=== PATIENT | female | born 1930 | race African-American/Black ===

== ENCOUNTER 2020-11-06 08:41 | Inpatient (IN) | payer MEDICARE, OTHER ==
[2020-11-06 08:51] LABS: Glucose,Whole Blood 347 mg/dL (75-99)
--- NOTE | 2020-11-06 08:52 | ED ---
General Adult HPI - General Stated complaint: unresponsive, hypothermia - History of Present Illness Initial comments: Dictation was produced using Coeur[employer] dictation software. please excuse any grammatical, word or spelling errors. This patient was cared for during a federal and state declared state of emergency secondary to Covid 19 Chief Complaint: 89-year-old female brought to the emergency department for altered mental status. History of Present Illness: 89-year-old female she was brought in by EMS. According to EMS she was last seen normal at 10 PM last night. She is found in the hallway where he was very cold. EMS tried to do point care blood glucose however was unable to. They made 2 attempts however was unsuccessful decided they should bring her to the emergency Department immediately. EMS measured her temperature is found to be low. EMS reports that they decided to obtain the patient leave the scene because patient's son was being belligerent. Patient is altered and unable to provide history of present illness. EMS measured her GCS at 9 Unable to obtain review of systems secondary to patient's mental status PHYSICAL EXAM: General Impression: Cold to the touch, localizes pain, HEENT: Normocephalic atraumatic, extra-ocular movements intact, pupils equal and reactive to light bilaterally, dry mucous membranes, pinpoint pupils Cardiovascular: Heart regular rate and rhythm Chest: no retractions, no tachypnea Abdomen: abdomen soft, non-tender, non-distended, no organomegaly Musculoskeletal: Pulses present and equal in all extremities, no peripheral edema Motor: no focal deficits noted Neurological: CN II-XII grossly intact, no focal motor or sensory deficits noted Skin: Intact with no visualized rashes ED course: 89-year-old male presents with hypothermia and altered mental status. Chart review does not show any previous history. Plan care blood glucose is in the 300s. Initial rectal temperature was 27.2C. Clinical presentation consistent with severe hypothermia. Patient with broad-spectrum antibiotics and 50 mg of IV hydrocortisone. Active external rewarming measures were performed. Patient is given warmed IV fluids, patient placed on vivian hugger. Case discussed with marine services technician and general surgeon. Dr. Ayala recommends transfer patient to facility that has cardiac bypass capabilities. Dental Appliance Mechanic not recommend thoracic lavage bilaterally. She does not recommend performing peritoneal lavage at patient's age. Case is discussed with Dr. Gutierrez at 10 AM who does not recommend performing cardiac bypass or mole in 89-year-old female with hypothermia. So for after discussion with marine services technician, general surgeon and cardiothoracic surgeon they do not recommend invasive, active internal warming measures given patient's age. The recommend that the risk outweigh the benefits. EKG interpretation: Ventricular rate 39, sinus bradycardia,. Interval 194, QRS 110, QTc 590. There are Moncada waves concerning for hypothermia.. QT is prolonged. No signs of high degree AV block. Son is at bedside reports that patient was trapped in the middle of 2 buildings. States that the hallway she was trapped in was very cold. Patient likely suffered environmental hypothermia. Son requests that patient be full code and all resuscitative measures be pursued. Patient reevaluated at bedside at 11:50 AM. Her temperature is improved at 90.6F. Patient be admitted to intensive care unit. Intravenous will be Dr. Rubin. Update was given to Dr. randall in the ICU. - Related Data Home Medications Medication Instructions Recorded Confirmed Aspirin [Children's Aspirin] 81 mg PO DAILY 11/06/20 11/06/20 DULoxetine HCL [Cymbalta] 30 mg PO DAILY 11/06/20 11/06/20 Donepezil [Aricept] 10 mg PO DAILY 11/06/20 11/06/20 Losartan Potassium [Cozaar] 100 mg PO DAILY 11/06/20 11/06/20 Memantine [Namenda] 10 mg PO BID 11/06/20 11/06/20 Simvastatin [Zocor] 40 mg PO HS 11/06/20 11/06/20 amLODIPine [Norvasc] 2.5 mg PO DAILY 11/06/20 11/06/20 busPIRone HCl [Buspar] 10 mg PO TID 11/06/20 11/06/20 Allergies Allergy/AdvReac Type Severity Reaction Status Date / Time No Allergy Information Allergy Vomiting Verified 11/06/20 10:07 Available Review of Systems ROS Statement: Those systems with pertinent positive or pertinent negative responses have been documented in the HPI. ROS Other: All systems not noted in ROS Statement are negative. Course Vital Signs 11/06/20 11/06/20 11/06/20 08:45 08:55 09:10 Temperature 83.8 F L 81.3 F L 81.7 F L Pulse Rate 62 37 L 35 L Respiratory 16 14 14 Rate Blood Pressure 157/101 164/78 168/83 O2 Sat by Pulse 99 100 100 Oximetry 11/06/20 11/06/20 11/06/20 09:25 09:30 09:40 Temperature 82.0 F L 80.8 F L Pulse Rate 37 L 39 L Respiratory 14 14 14 Rate Blood Pressure 188/82 172/82 O2 Sat by Pulse 100 100 Oximetry 11/06/20 11/06/20 11/06/20 09:52 09:55 10:00 Temperature 81.1 F L 81.3 F L Pulse Rate 32 L 36 L Respiratory 14 14 14 Rate Blood Pressure 164/77 187/86 O2 Sat by Pulse 100 100 Oximetry 11/06/20 11/06/20 11/06/20 10:10 10:25 10:40 Temperature 82.0 F L 82.4 F L 80.8 F L Pulse Rate 32 L 42 L 39 L Respiratory 14 14 14 Rate Blood Pressure 172/84 179/81 181/83 O2 Sat by Pulse 100 100 100 Oximetry 11/06/20 11/06/20 11/06/20 10:55 11:10 11:25 Temperature 82.6 F L 84.9 F L 86 F L Pulse Rate 42 L 51 L 51 L Respiratory 14 14 14 Rate Blood Pressure 183/86 180/86 O2 Sat by Pulse 100 100 100 Oximetry 11/06/20 11:42 Temperature 86.9 F L Pulse Rate 48 L Respiratory 14 Rate Blood Pressure 156/89 O2 Sat by Pulse 100 Oximetry Procedures - Intubation Sedative: Etomidate Mg Given: 20 Paralytic: Rocuronium Mg Given: 70 Laryngoscope: Arriola Size: 4 ET Tube Size: 7.5 ET Tube Uncuffed: No Tube Secured Depth (cm): 21 Tube Secured Location: lips Tube Placement Confirmation: visualized tube passing through cords, equal breath sounds bilaterally, no breath sounds over epigastrium, confirmation by capnometry Patient Tolerated Procedure: well Intubation Complications: none Medical Decision Making - Lab Data Result diagrams: 11/06/20 09:33 11/06/20 09:33 Lab Results 11/06/20 11/06/20 11/06/20 Range/Units 08:50 09:33 09:33 WBC 9.4 (3.8-10.6) k/uL RBC 3.24 L (3.80-5.40) m/uL Hgb 10.0 L (11.4-16.0) gm/dL Hct 30.5 L (34.0-46.0) % MCV 94.0 (80.0-100.0) fL MCH 30.9 (25.0-35.0) pg MCHC 32.9 (31.0-37.0) g/dL RDW 13.5 (11.5-15.5) % Plt Count 202 (150-450) k/uL MPV 8.5 Neutrophils % 43 % Lymphocytes % 53 % Monocytes % 2 % Eosinophils % 1 % Basophils % 0 % Neutrophils # 4.0 (1.3-7.7) k/uL Lymphocytes # 4.9 H (1.0-4.8) k/uL Monocytes # 0.1 (0-1.0) k/uL Eosinophils # 0.1 (0-0.7) k/uL Basophils # 0.0 (0-0.2) k/uL PT 12.4 H (9.0-12.0) sec INR 1.2 H (<1.2) APTT 22.3 (22.0-30.0) sec Sample Site ABG pH (7.35-7.45) ABG pCO2 (35-45) mmHg ABG pO2 (83-108) mmHg ABG HCO3 (21-25) mmol/L ABG Total CO2 (19-24) mmol/L ABG O2 Saturation (94-97) % ABG Base Excess mmol/L Jayro Test FiO2 % Sodium (137-145) mmol/L Potassium (3.5-5.1) mmol/L Chloride (98-107) mmol/L Carbon Dioxide (22-30) mmol/L Anion Gap mmol/L BUN (7-17) mg/dL Creatinine (0.52-1.04) mg/dL Est GFR (CKD-EPI)AfAm (>60 ml/min/1.73 sqM) Est GFR (CKD-EPI)NonAf (>60 ml/min/1.73 sqM) Glucose (74-99) mg/dL POC Glucose (mg/dL) 347 H (75-99) mg/dL POC Glu Associate Embalmer/Funeral Director ID Shirley Ayala Osmolality (280-301) mosm/kg Plasma Lactic Acid Uskhi (0.7-2.0) mmol/L Calcium (8.4-10.2) mg/dL Ionized Calcium Robert (4.5-5.3) mg/dL Magnesium (1.6-2.3) mg/dL Total Bilirubin (0.2-1.3) mg/dL AST (14-36) U/L ALT (4-34) U/L Alkaline Phosphatase (38-126) U/L Ammonia (<30) umol/L Creatine Kinase (30-135) U/L Troponin I (0.000-0.034) ng/mL C-Reactive Protein (<10.0) mg/L Total Protein (6.3-8.2) g/dL Albumin (3.5-5.0) g/dL Lipase (23-300) U/L TSH (0.465-4.680) mIU/L Urine Color Urine Appearance (Clear) Urine pH (5.0-8.0) Ur Specific [place] (1.001-1.035) Urine Protein (Negative) Urine Glucose (UA) (Negative) Urine Ketones (Negative) Urine Blood (Negative) Urine Nitrite (Negative) Urine Bilirubin (Negative) Urine Urobilinogen (<2.0) mg/dL Ur Leukocyte Esterase (Negative) Urine RBC (0-5) /hpf Urine WBC (0-5) /hpf Ur Squamous Epith Cells (0-4) /hpf Amorphous Sediment (None) /hpf Urine Bacteria (None) /hpf Hyaline Casts (0-2) /lpf Urine Mucus (None) /hpf Salicylates mg/dL Urine Opiates Screen (NotDetected) Ur Oxycodone Screen (NotDetected) Urine Methadone Screen (NotDetected) Ur Propoxyphene Screen (NotDetected) Acetaminophen ug/mL Ur Barbiturates Screen (NotDetected) U Tricyclic Antidepress (NotDetected) Ur Phencyclidine Scrn (NotDetected) Ur Amphetamines Screen (NotDetected) U Methamphetamines Scrn (NotDetected) U Benzodiazepines Scrn (NotDetected) Urine Cocaine Screen (NotDetected) U Marijuana (THC) Screen (NotDetected) Serum Alcohol mg/dL Coronavirus (PCR) (Not Detectd) Blood Type Blood Type Confirm Blood Type Recheck Bld Type Recheck Status Antibody Screen Spec Expiration Date 0111/06/20 11/06/20 Range/Units 09:33 09:33 09:33 WBC (3.8-10.6) k/uL RBC (3.80-5.40) m/uL Hgb (11.4-16.0) gm/dL Hct (34.0-46.0) % MCV (80.0-100.0) fL MCH (25.0-35.0) pg MCHC (31.0-37.0) g/dL RDW (11.5-15.5) % Plt Count (150-450) k/uL MPV Neutrophils % % Lymphocytes % % Monocytes % % Eosinophils % % Basophils % % Neutrophils # (1.3-7.7) k/uL Lymphocytes # (1.0-4.8) k/uL Monocytes # (0-1.0) k/uL Eosinophils # (0-0.7) k/uL Basophils # (0-0.2) k/uL PT (9.0-12.0) sec INR (<1.2) APTT (22.0-30.0) sec Sample Site ABG pH (7.35-7.45) ABG pCO2 (35-45) mmHg ABG pO2 (83-108) mmHg ABG HCO3 (21-25) mmol/L ABG Total CO2 (19-24) mmol/L ABG O2 Saturation (94-97) % ABG Base Excess mmol/L Jayro Test FiO2 % Sodium 145 (137-145) mmol/L Potassium 3.9 (3.5-5.1) mmol/L Chloride 111 H (98-107) mmol/L Carbon Dioxide 19 L (22-30) mmol/L Anion Gap 15 mmol/L BUN 35 H (7-17) mg/dL Creatinine 0.71 (0.52-1.04) mg/dL Est GFR (CKD-EPI)AfAm 88 (>60 ml/min/1.73 sqM) Est GFR (CKD-EPI)NonAf 76 (>60 ml/min/1.73 sqM) Glucose 297 H (74-99) mg/dL POC Glucose (mg/dL) (75-99) mg/dL POC Glu Associate Embalmer/Funeral Director ID Osmolality 316 H (280-301) mosm/kg Plasma Lactic Acid Sukhi 3.7 H* (0.7-2.0) mmol/L Calcium 9.3 (8.4-10.2) mg/dL Ionized Calcium Robert 6.1 H* (4.5-5.3) mg/dL Magnesium 1.9 (1.6-2.3) mg/dL Total Bilirubin 0.7 (0.2-1.3) mg/dL AST 26 (14-36) U/L ALT 18 (4-34) U/L Alkaline Phosphatase 84 (38-126) U/L Ammonia <9 (<30) umol/L Creatine Kinase 84 (30-135) U/L Troponin I (0.000-0.034) ng/mL C-Reactive Protein <5.0 (<10.0) mg/L Total Protein 6.0 L (6.3-8.2) g/dL Albumin 3.1 L (3.5-5.0) g/dL Lipase 174 (23-300) U/L TSH 2.030 (0.465-4.680) mIU/L Urine Color Urine Appearance (Clear) Urine pH (5.0-8.0) Ur Specific [place] (1.001-1.035) Urine Protein (Negative) Urine Glucose (UA) (Negative) Urine Ketones (Negative) Urine Blood (Negative) Urine Nitrite (Negative) Urine Bilirubin (Negative) Urine Urobilinogen (<2.0) mg/dL Ur Leukocyte Esterase (Negative) Urine RBC (0-5) /hpf Urine WBC (0-5) /hpf Ur Squamous Epith Cells (0-4) /hpf Amorphous Sediment (None) /hpf Urine Bacteria (None) /hpf Hyaline Casts (0-2) /lpf Urine Mucus (None) /hpf Salicylates <1.0 mg/dL Urine Opiates Screen Not Detected (NotDetected) Ur Oxycodone Screen Not Detected (NotDetected) Urine Methadone Screen Not Detected (NotDetected) Ur Propoxyphene Screen Not Detected (NotDetected) Acetaminophen <10.0 ug/mL Ur Barbiturates Screen Not Detected (NotDetected) U Tricyclic Antidepress Not Detected (NotDetected) Ur Phencyclidine Scrn Not Detected (NotDetected) Ur Amphetamines Screen Not Detected (NotDetected) U Methamphetamines Scrn Not Detected (NotDetected) U Benzodiazepines Scrn Not Detected (NotDetected) Urine Cocaine Screen Not Detected (NotDetected) U Marijuana (THC) Screen Not Detected (NotDetected) Serum Alcohol <10 mg/dL Coronavirus (PCR) (Not Detectd) Blood Type Blood Type Confirm Blood Type Recheck Bld Type Recheck Status Antibody Screen Spec Expiration Date 11/06/20 11/06/20 11/06/20 Range/Units 09:33 09:33 09:40 WBC (3.8-10.6) k/uL RBC (3.80-5.40) m/uL Hgb (11.4-16.0) gm/dL Hct (34.0-46.0) % MCV (80.0-100.0) fL MCH (25.0-35.0) pg MCHC (31.0-37.0) g/dL RDW (11.5-15.5) % Plt Count (150-450) k/uL MPV Neutrophils % % Lymphocytes % % Monocytes % % Eosinophils % % Basophils % % Neutrophils # (1.3-7.7) k/uL Lymphocytes # (1.0-4.8) k/uL Monocytes # (0-1.0) k/uL Eosinophils # (0-0.7) k/uL Basophils # (0-0.2) k/uL PT (9.0-12.0) sec INR (<1.2) APTT (22.0-30.0) sec Sample Site ABG pH (7.35-7.45) ABG pCO2 (35-45) mmHg ABG pO2 (83-108) mmHg ABG HCO3 (21-25) mmol/L ABG Total CO2 (19-24) mmol/L ABG O2 Saturation (94-97) % ABG Base Excess mmol/L Jayro Test FiO2 % Sodium (137-145) mmol/L Potassium (3.5-5.1) mmol/L Chloride (98-107) mmol/L Carbon Dioxide (22-30) mmol/L Anion Gap mmol/L BUN (7-17) mg/dL Creatinine (0.52-1.04) mg/dL Est GFR (CKD-EPI)AfAm (>60 ml/min/1.73 sqM) Est GFR (CKD-EPI)NonAf (>60 ml/min/1.73 sqM) Glucose (74-99) mg/dL POC Glucose (mg/dL) (75-99) mg/dL POC Glu Associate Embalmer/Funeral Director ID Osmolality (280-301) mosm/kg Plasma Lactic Acid Sukhi (0.7-2.0) mmol/L Calcium (8.4-10.2) mg/dL Ionized Calcium Robert (4.5-5.3) mg/dL Magnesium (1.6-2.3) mg/dL Total Bilirubin (0.2-1.3) mg/dL AST (14-36) U/L ALT (4-34) U/L Alkaline Phosphatase (38-126) U/L Ammonia (<30) umol/L Creatine Kinase (30-135) U/L Troponin I 0.018 (0.000-0.034) ng/mL C-Reactive Protein (<10.0) mg/L Total Protein (6.3-8.2) g/dL Albumin (3.5-5.0) g/dL Lipase (23-300) U/L TSH (0.465-4.680) mIU/L Urine Color Light Yellow Urine Appearance Clear (Clear) Urine pH 5.5 (5.0-8.0) Ur Specific [place] 1.021 (1.001-1.035) Urine Protein 2+ H (Negative) Urine Glucose (UA) 4+ H (Negative) Urine Ketones 1+ H (Negative) Urine Blood Negative (Negative) Urine Nitrite Negative (Negative) Urine Bilirubin Negative (Negative) Urine Urobilinogen <2.0 (<2.0) mg/dL Ur Leukocyte Esterase Negative (Negative) Urine RBC 2 (0-5) /hpf Urine WBC 3 (0-5) /hpf Ur Squamous Epith Cells <1 (0-4) /hpf Amorphous Sediment Occasional H (None) /hpf Urine Bacteria Occasional H (None) /hpf Hyaline Casts 3 H (0-2) /lpf Urine Mucus Rare H (None) /hpf Salicylates mg/dL Urine Opiates Screen (NotDetected) Ur Oxycodone Screen (NotDetected) Urine Methadone Screen (NotDetected) Ur Propoxyphene Screen (NotDetected) Acetaminophen ug/mL Ur Barbiturates Screen (NotDetected) U Tricyclic Antidepress (NotDetected) Ur Phencyclidine Scrn (NotDetected) Ur Amphetamines Screen (NotDetected) U Methamphetamines Scrn (NotDetected) U Benzodiazepines Scrn (NotDetected) Urine Cocaine Screen (NotDetected) U Marijuana (THC) Screen (NotDetected) Serum Alcohol mg/dL Coronavirus (PCR) (Not Detectd) Blood Type O Positive Blood Type Confirm Blood Type Recheck Bld Type Recheck Status Antibody Screen NEGATIVE Spec Expiration Date 11/06/20 11/06/20 11/06/20 Range/Units 09:42 09:55 09:59 WBC (3.8-10.6) k/uL RBC (3.80-5.40) m/uL Hgb (11.4-16.0) gm/dL Hct (34.0-46.0) % MCV (80.0-100.0) fL MCH (25.0-35.0) pg MCHC (31.0-37.0) g/dL RDW (11.5-15.5) % Plt Count (150-450) k/uL MPV Neutrophils % % Lymphocytes % % Monocytes % % Eosinophils % % Basophils % % Neutrophils # (1.3-7.7) k/uL Lymphocytes # (1.0-4.8) k/uL Monocytes # (0-1.0) k/uL Eosinophils # (0-0.7) k/uL Basophils # (0-0.2) k/uL PT (9.0-12.0) sec INR (<1.2) APTT (22.0-30.0) sec Sample Site LRAD ABG pH 7.30 L (7.35-7.45) ABG pCO2 36 (35-45) mmHg ABG pO2 >400 H (83-108) mmHg ABG HCO3 18 L (21-25) mmol/L ABG Total CO2 19 (19-24) mmol/L ABG O2 Saturation 100.0 H (94-97) % ABG Base Excess -8.3 mmol/L Jayro Test Yes FiO2 100 % Sodium (137-145) mmol/L Potassium (3.5-5.1) mmol/L Chloride (98-107) mmol/L Carbon Dioxide (22-30) mmol/L Anion Gap mmol/L BUN (7-17) mg/dL Creatinine (0.52-1.04) mg/dL Est GFR (CKD-EPI)AfAm (>60 ml/min/1.73 sqM) Est GFR (CKD-EPI)NonAf (>60 ml/min/1.73 sqM) Glucose (74-99) mg/dL POC Glucose (mg/dL) (75-99) mg/dL POC Glu Associate Embalmer/Funeral Director ID Osmolality (280-301) mosm/kg Plasma Lactic Acid Sukhi (0.7-2.0) mmol/L Calcium (8.4-10.2) mg/dL Ionized Calcium Robert (4.5-5.3) mg/dL Magnesium (1.6-2.3) mg/dL Total Bilirubin (0.2-1.3) mg/dL AST (14-36) U/L ALT (4-34) U/L Alkaline Phosphatase (38-126) U/L Ammonia (<30) umol/L Creatine Kinase (30-135) U/L Troponin I (0.000-0.034) ng/mL C-Reactive Protein (<10.0) mg/L Total Protein (6.3-8.2) g/dL Albumin (3.5-5.0) g/dL Lipase (23-300) U/L TSH (0.465-4.680) mIU/L Urine Color Urine Appearance (Clear) Urine pH (5.0-8.0) Ur Specific [place] (1.001-1.035) Urine Protein (Negative) Urine Glucose (UA) (Negative) Urine Ketones (Negative) Urine Blood (Negative) Urine Nitrite (Negative) Urine Bilirubin (Negative) Urine Urobilinogen (<2.0) mg/dL Ur Leukocyte Esterase (Negative) Urine RBC (0-5) /hpf Urine WBC (0-5) /hpf Ur Squamous Epith Cells (0-4) /hpf Amorphous Sediment (None) /hpf Urine Bacteria (None) /hpf Hyaline Casts (0-2) /lpf Urine Mucus (None) /hpf Salicylates mg/dL Urine Opiates Screen (NotDetected) Ur Oxycodone Screen (NotDetected) Urine Methadone Screen (NotDetected) Ur Propoxyphene Screen (NotDetected) Acetaminophen ug/mL Ur Barbiturates Screen (NotDetected) U Tricyclic Antidepress (NotDetected) Ur Phencyclidine Scrn (NotDetected) Ur Amphetamines Screen (NotDetected) U Methamphetamines Scrn (NotDetected) U Benzodiazepines Scrn (NotDetected) Urine Cocaine Screen (NotDetected) U Marijuana (THC) Screen (NotDetected) Serum Alcohol mg/dL Coronavirus (PCR) (Not Detectd) Blood Type Blood Type Confirm O Positive Blood Type Recheck No Previous Record Bld Type Recheck Status CABO Indicated Antibody Screen Spec Expiration Date 11/09/2020 - 235811/06/20 Range/Units 09:59 WBC (3.8-10.6) k/uL RBC (3.80-5.40) m/uL Hgb (11.4-16.0) gm/dL Hct (34.0-46.0) % MCV (80.0-100.0) fL MCH (25.0-35.0) pg MCHC (31.0-37.0) g/dL RDW (11.5-15.5) % Plt Count (150-450) k/uL MPV Neutrophils % % Lymphocytes % % Monocytes % % Eosinophils % % Basophils % % Neutrophils # (1.3-7.7) k/uL Lymphocytes # (1.0-4.8) k/uL Monocytes # (0-1.0) k/uL Eosinophils # (0-0.7) k/uL Basophils # (0-0.2) k/uL PT (9.0-12.0) sec INR (<1.2) APTT (22.0-30.0) sec Sample Site ABG pH (7.35-7.45) ABG pCO2 (35-45) mmHg ABG pO2 (83-108) mmHg ABG HCO3 (21-25) mmol/L ABG Total CO2 (19-24) mmol/L ABG O2 Saturation (94-97) % ABG Base Excess mmol/L Jayro Test FiO2 % Sodium (137-145) mmol/L Potassium (3.5-5.1) mmol/L Chloride (98-107) mmol/L Carbon Dioxide (22-30) mmol/L Anion Gap mmol/L BUN (7-17) mg/dL Creatinine (0.52-1.04) mg/dL Est GFR (CKD-EPI)AfAm (>60 ml/min/1.73 sqM) Est GFR (CKD-EPI)NonAf (>60 ml/min/1.73 sqM) Glucose (74-99) mg/dL POC Glucose (mg/dL) (75-99) mg/dL POC Glu Associate Embalmer/Funeral Director ID Osmolality (280-301) mosm/kg Plasma Lactic Acid Sukhi (0.7-2.0) mmol/L Calcium (8.4-10.2) mg/dL Ionized Calcium Robert (4.5-5.3) mg/dL Magnesium (1.6-2.3) mg/dL Total Bilirubin (0.2-1.3) mg/dL AST (14-36) U/L ALT (4-34) U/L Alkaline Phosphatase (38-126) U/L Ammonia (<30) umol/L Creatine Kinase (30-135) U/L Troponin I (0.000-0.034) ng/mL C-Reactive Protein (<10.0) mg/L Total Protein (6.3-8.2) g/dL Albumin (3.5-5.0) g/dL Lipase (23-300) U/L TSH (0.465-4.680) mIU/L Urine Color Urine Appearance (Clear) Urine pH (5.0-8.0) Ur Specific [place] (1.001-1.035) Urine Protein (Negative) Urine Glucose (UA) (Negative) Urine Ketones (Negative) Urine Blood (Negative) Urine Nitrite (Negative) Urine Bilirubin (Negative) Urine Urobilinogen (<2.0) mg/dL Ur Leukocyte Esterase (Negative) Urine RBC (0-5) /hpf Urine WBC (0-5) /hpf Ur Squamous Epith Cells (0-4) /hpf Amorphous Sediment (None) /hpf Urine Bacteria (None) /hpf Hyaline Casts (0-2) /lpf Urine Mucus (None) /hpf Salicylates mg/dL Urine Opiates Screen (NotDetected) Ur Oxycodone Screen (NotDetected) Urine Methadone Screen (NotDetected) Ur Propoxyphene Screen (NotDetected) Acetaminophen ug/mL Ur Barbiturates Screen (NotDetected) U Tricyclic Antidepress (NotDetected) Ur Phencyclidine Scrn (NotDetected) Ur Amphetamines Screen (NotDetected) U Methamphetamines Scrn (NotDetected) U Benzodiazepines Scrn (NotDetected) Urine Cocaine Screen (NotDetected) U Marijuana (THC) Screen (NotDetected) Serum Alcohol mg/dL Coronavirus (PCR) Not Detected (Not Detectd) Blood Type Blood Type Confirm Blood Type Recheck Bld Type Recheck Status Antibody Screen Spec Expiration Date Disposition Clinical Impression: Hypothermia Disposition: ADMITTED IP TO THIS [facility] Condition: Critical Referrals: Дмитрий Rubin MD [Primary Care Provider] - 1-2 days Decision Time: 11:56
[2020-11-06] MEDS ORDERED: SODIUM CHLORIDE 0.9% 2,000 ML IV ONE (09:30)
[2020-11-06] MEDS ORDERED: VANCOMYCIN IV PER PHARMACY 1 EACH MISC MISCELLANE PRN (09:32)
[2020-11-06] MEDS ORDERED: HYDROCORTISONE SUCCINATE 100 MG/2 ML VIAL IV STA (09:33)
[2020-11-06] MEDS ORDERED: PIPERACILLIN-TAZOBACTAM 3.375 GM in SODIUM CHLORIDE 0.9% 100 ML IVPB STA (09:33)
[2020-11-06 09:40] LABS: Basophils % (A) 0 %; Eosinophils # (A) 0.1 k/uL (0-0.7); Eosinophils % (A) 1 %; HCT 30.5 % (34.0-46.0); Lymphocytes # (A) 4.9 k/uL (1.0-4.8); Lymphocytes % (A) 53 %; MCH 30.9 pg (25.0-35.0); MCHC 32.9 g/dL (31.0-37.0); Mean Platelet Volume 8.5; Monocytes # (A) 0.1 k/uL (0-1.0); Monocytes % (A) 2 %; Neutrophils % (A) 43 %; Platelet Count 202 k/uL (150-450); RBC 3.24 m/uL (3.80-5.40); RDW 13.5 % (11.5-15.5); WBC 9.4 k/uL (3.8-10.6)
[2020-11-06] MEDS ORDERED: VANCOMYCIN 750 MG in SODIUM CHLORIDE 0.9% 250 ML IVPB ONE (09:45)
[2020-11-06 09:49] LABS: Amorphous Sediment,Urine Occasional /hpf; Appearance,Urine Clear (Clear); Bacteria,Urine Occasional /hpf; Bilirubin,Urine Negative (Negative); Blood,Urine Negative (Negative); Color,Urine Light Yellow; Glucose,Urine (UA) 4+ (Negative); Hyaline Casts,Urine 3 /lpf (0-2); INR 1.2 (<1.2); Ketones,Urine 1+ (Negative); Leukocyte Esterase,Urine Negative (Negative); Mucus,Urine Rare /hpf; Nitrite,Urine Negative (Negative); PH, Urine 5.5 (5.0-8.0); Partial Thromboplastin Time 22.3 sec (22.0-30.0); Protein,Urine 2+ (Negative); Prothrombin Time 12.4 sec (9.0-12.0); RBC,Urine 2 /hpf (0-5); Specific Gravity,Urine 1.021 (1.001-1.035); Squamous Epithelial Cell,Urine <1 /hpf (0-4); Urobilinogen,Urine <2.0 mg/dL (<2.0); WBC,Urine 3 /hpf (0-5)
[2020-11-06] MEDS ORDERED: ETOMIDATE 2 MG/ML 10 ML VIAL IVP STA (09:49)
[2020-11-06 09:50] LABS: ABG Base Excess -8.3 mmol/L; ABG HCO3 18 mmol/L (21-25); ABG PCO2 36 mmHg (35-45); ABG PO2 >400 mmHg (83-108); ABG TCO2 19 mmol/L (19-24); Allen Test Performed? Yes
[2020-11-06] MEDS ORDERED: ROCURONIUM 10 MG/ML (10 ML VIAL) IV STA (09:50)
[2020-11-06] MEDS ORDERED: NALOXONE 0.4 MG/ML 10 ML VIAL IVP STA (09:51)
[2020-11-06] MEDS ORDERED: NALOXONE 0.4 MG/ML 1 ML VIAL IVP STA (09:51)
[2020-11-06 09:54] LABS: Ionized Calcium 6.1 mg/dL (4.5-5.3)
--- NOTE | 2020-11-06 09:57 | XR ---
EXAMINATION TYPE: XR chest 1V portable DATE OF EXAM: 11/06/2020 COMPARISON: NONE HISTORY: Altered mental status and weakness. At the beginning to invade it. TECHNIQUE: 2 AP portable frontal supine views of the chest are obtained. FINDINGS: There is endotracheal tuber at level of babar, advise pulling back 4 to 5 cm to be in more ideal position. There is orogastric tube coiled within the stomach. Overlying EKG leads. Heart size upper limits of normal with atherosclerotic and ectatic thoracic aorta. Chronic parenchyma l changes suspected and low lung volumes bilaterally without suspicious focal airspace opacity, pleur al effusion, or pneumothorax seen. Osseous structures intact. Artifact from overlying clothing or lc nket material is present. IMPRESSION: 1. Satisfactory positioning of orogastric tube. Low lying endotracheal tube, advise pulling back 4 to 5 cm. 2. Low lung volumes and chronic parenchymal changes without suspicious acute pulmonary process.
[2020-11-06 09:58] LABS: ALT 18 U/L (4-34); AST 26 U/L (14-36); Acetaminophen <10.0 ug/mL; African American GFR (CKD) 88 (>60 ml/min/1.73 sqM); Albumin 3.1 g/dL (3.5-5.0); Alcohol <10 mg/dL; Alkaline Phosphatase 84 U/L (38-126); Anion Gap 15 mmol/L; Blood Urea Nitrogen 35 mg/dL (7-17); Calcium 9.3 mg/dL (8.4-10.2); Carbon Dioxide 19 mmol/L (22-30); Chloride 111 mmol/L (98-107); Creatine Kinase 84 U/L (30-135); Glucose 297 mg/dL (74-99); Lipase 174 U/L (23-300); Magnesium 1.9 mg/dL (1.6-2.3); Non-African American GFR(CKD) 76 (>60 ml/min/1.73 sqM); Salicylate <1.0 mg/dL; Sodium 145 mmol/L (137-145); Total Bilirubin 0.7 mg/dL (0.2-1.3)
[2020-11-06 10:01] LABS: Amphetamine Screen,Urine Not Detected (NotDetected); Barbiturate Screen,Urine Not Detected (NotDetected); Benzodiazepines Screen,Urine Not Detected (NotDetected); Cocaine Screen,Urine Not Detected (NotDetected); Methadone Screen, Urine Not Detected (NotDetected); Opiate Screen,Urine Not Detected (NotDetected); Oxycodone Screen, Urine Not Detected (NotDetected); Phencyclidine Screen,Urine Not Detected (NotDetected); Tricyclic Antidepressant,Urine Not Detected (NotDetected); Urn Cannabinoid Scrn Not Detected (NotDetected)
[2020-11-06] MEDS ORDERED: CALCIUM CHLORIDE 100 MG/ML 10 ML SYRINGE IVP STA (10:04)
[2020-11-06 10:08] LABS: Potassium 3.9 mmol/L (3.5-5.1)
[2020-11-06 10:16] LABS: Lactic Acid, Venous 3.7 mmol/L (0.7-2.0)
[2020-11-06] MEDS ORDERED: CALCIUM GLUCONATE 1 GM in SODIUM CHLORIDE 0.9% 100 ML IVPB ONE (10:30)
[2020-11-06 10:39] LABS: C Reactive Protein <5.0 mg/L (<10.0)
--- NOTE | 2020-11-06 11:35 | CT ---
EXAMINATION TYPE: CT brain latonya gore DATE OF EXAM: 11/06/2020 COMPARISON: None HISTORY: Altered mental status, hypothermia, found unresponsive CT DLP: 1264 mGycm Automated exposure control for dose reduction was used. TECHNIQUE: CT scan of the head and cervical spine are performed without contrast. FINDINGS: There is no acute intracranial hemorrhage, mass effect, or midline shift identified. The ventricles and sulci are within normal limits in size. There is cortical atrophy. Periventricular wh ite matter shows patchy low attenuation. Focal low attenuation is present within the thalamus on the left which is asymmetric. There are cerebral vascular calcifications. The globes are intact and the v isualized sinuses are clear. Endotracheal tube is noted incidentally. Basilar tip appears somewhat de nse. There may be some slight enlargement. There is an NG tube present. Cervical spine is visualized in its entirety from C1 through upper thoracic levels and demonstrates s atisfactory alignment without evidence of acute fracture or dislocation. Prevertebral soft tissue ap pears within normal limits. The C1-C2 articulation is unremarkable. There is multilevel facet arthro michael. Multilevel spondylosis with loss of disc height is present consistent with degenerative disc d isease, there is multilevel foraminal encroachment. IMPRESSION: 1. There is no acute fracture or dislocation evident in the cervical spine. 2. Findings may represent subacute thalamic infarct, correlate. No acute intracranial hemorrhage, mas s effect, or midline shift is seen. 3. Dense basilar artery is indeterminate, brain MR, [place] of [place] MRA may be of benefit
[2020-11-06] MEDS ORDERED: NALOXONE 0.4 MG/ML 1 ML VIAL IV PRN (11:49)
[2020-11-06] MEDS ORDERED: ASPIRIN 600 MG SUPP RECTAL STA (11:58)
[2020-11-06 12:57] LABS: Glucose,Whole Blood 209 mg/dL (75-99)
--- NOTE | 2020-11-06 13:22 | P.CNPUL ---
History of Present Illness Consult date: 11/06/20 Requesting physician: Дмитрий Rubin Reason for consult: other (Mechanical ventilator/critical care management) History of present illness: This is a 89-year-old frail, cachectic, 38 kg female patient with a history of mention, hypertension, hyperlipidemia. She was brought in earlier this morning via EMS after she was being had been found in the hallway of her apartment building. The hallway was somewhat exposed to the outside temperature. They were unable to obtain point of care glucose testing. They found her temperature to be quite low as well. She was quite unresponsive they decided to bring her right to the emergency room. They left the scene urgently as the son was being belligerent. No further information was able to be obtained. Upon arrival they found her blood glucose to be in the 300s. Her initial rectal temperature was 27.2C. Consistent with severe hypothermia. Active external rewarming measures were performed. She received 2 L of warm saline IV. Fabian hugger was placed. CT services were contacted and did not recommend performing any invasive warming procedures at this time. Due to the patient's obtundation she was intubated and placed on a mechanical ventilator. Computed tomography scan of the brain revealed no acute fracture or dislocation evident in the cervical spine. There may be a subacute thalamic infarct. No acute intracranial hemorrhage, mass effect or midline shift. Chest x-ray revealed low lung volumes and chronic parenchymal changes but no acute suspicious pulmonary process. Satisfactory position of the OG tube. Endotracheal tube repositioned. EKG revealed significant bradycardia and prolonged QT with corrected measuring 590 ms. White count 9.4. Hemoglobin 10.0. INR 1.2. Sodium 145. Potassium 2.9. Creatinine 0.71. Glucose 297. Lactic acid 3.7. Ionized calcium measured 6.1. TSH 2.03. Albumin 3.1. Troponin 0.018. C-reactive protein less than 5. CK level 84. Urinalysis 1+ ketones. Urine drug screen negative. Alcohol level less than 10. Coronavirus not detected. Current ventilator settings are assist control at a rate of 16, tidal volume 400, FiO2 100% and a PEEP of 5. Gases revealed a pH is 7.30, pCO2 36, pO2 greater than 400. FiO2 has been titrated down to 50%. She has received Zosyn, vancomycin. Her current core temperature is 89.6. Review of Systems ROS unobtainable: due to endotracheal tube Past Medical History Past Medical History: No Reported History, Dementia, Hyperlipidemia, Hypertension History of Any Multi-Drug Resistant Organisms: None Reported Past Surgical History: No Surgical Hx Reported Past Psychological History: No Psychological Hx Reported Smoking Status: Unknown if ever smoked Past Alcohol Use History: None Reported Past Drug Use History: None Reported Medications and Allergies Home Medications Medication Instructions Recorded Confirmed Type Aspirin [Children's Aspirin] 81 mg PO DAILY 11/06/20 11/06/20 History DULoxetine HCL [Cymbalta] 30 mg PO DAILY 11/06/20 11/06/20 History Donepezil [Aricept] 10 mg PO DAILY 11/06/20 11/06/20 History Losartan Potassium [Cozaar] 100 mg PO DAILY 11/06/20 11/06/20 History Memantine [Namenda] 10 mg PO BID 11/06/20 11/06/20 History Simvastatin [Zocor] 40 mg PO HS 11/06/20 11/06/20 History amLODIPine [Norvasc] 2.5 mg PO DAILY 11/06/20 11/06/20 History busPIRone HCl [Buspar] 10 mg PO TID 11/06/20 11/06/20 History Allergies Allergy/AdvReac Type Severity Reaction Status Date / Time No Allergy Information Allergy Vomiting Verified 11/06/20 10:07 Available Physical Exam Vitals: Vital Signs Temp Pulse Resp BP Pulse Ox 11/06/20 12:00 89.6 F L 42 L 14 170/75 100 11/06/20 11:55 88.5 F L 42 L 14 166/81 11/06/20 11:42 86.9 F L 48 L 14 156/89 100 11/06/20 11:40 88.2 F L 48 L 14 166/81 100 11/06/20 11:25 86 F L 51 L 14 180/86 100 11/06/20 11:10 84.9 F L 51 L 14 100 11/06/20 10:55 82.6 F L 42 L 14 183/86 100 11/06/20 10:40 80.8 F L 39 L 14 181/83 100 11/06/20 10:25 82.4 F L 42 L 14 179/81 100 11/06/20 10:10 82.0 F L 32 L 14 172/84 100 11/06/20 10:00 81.3 F L 36 L 14 187/86 100 11/06/20 09:55 81.1 F L 32 L 14 164/77 100 11/06/20 09:52 14 11/06/20 09:40 80.8 F L 39 L 14 172/82 100 11/06/20 09:30 14 11/06/20 09:25 82.0 F L 37 L 14 188/82 100 11/06/20 09:10 81.7 F L 35 L 14 168/83 100 11/06/20 08:55 81.3 F L 37 L 14 164/78 100 11/06/20 08:45 83.8 F L 62 16 157/101 99 Intake and Output 11/05/20 11/06/20 11/06/20 22:59 06:59 14:59 Intake Total 6.246 Output Total 800 Balance -793.754 Intake: Intake, IV Titration 6.246 Amount propofoL 1,000 mg In 6.246 Empty Bag 1 bag @ Titrate IV .Q0M ONE Rx#: [id number] Output: Urine 800 Uretheral (Bae) 800 Other: Weight 38.555 kg GENERAL EXAM: Intubated, sedated, frail 89-year-old female patient, comfortable in no apparent distress. HEAD: Normocephalic. EYES: Sluggish reaction of pupils, equal size. NOSE: Clear with pink turbinates. THROAT: Oral endotracheal and gastric tube secured in place. No erythema or exudates. NECK: No masses, no JVD. CHEST: No chest wall deformity. LUNGS: Equal air entry with no crackles, wheeze, rhonchi or dullness. CVS: S1 and S2 normal with no audible murmur, regular rhythm. ABDOMEN: No hepatosplenomegaly, normal bowel sounds, no guarding or rigidity. SPINE: No scoliosis or deformity SKIN: No rashes CENTRAL NERVOUS SYSTEM: Sedated, tone is normal in all 4 extremities. EXTREMITIES: There is no peripheral edema. No clubbing, no cyanosis. Peripheral pulses are intact. Results - Laboratory Findings CBC and BMP: 11/06/20 09:33 11/06/20 09:33 ABG ABG pH 7.30 (7.35-7.45) L 11/06/20 09:42 ABG pCO2 36 mmHg (35-45) 11/06/20 09:42 ABG pO2 >400 mmHg (83-108) H 11/06/20 09:42 ABG O2 Saturation 100.0 % (94-97) H 11/06/20 09:42 PT/INR, D-dimer PT 12.4 sec (9.0-12.0) H 11/06/20 09:33 INR 1.2 (<1.2) H 11/06/20 09:33 Abnormal lab findings: Abnormal Labs 11/06/20 11/06/20 11/06/20 08:50 09:33 09:33 RBC 3.24 L Hgb 10.0 L Hct 30.5 L Lymphocytes # 4.9 H PT 12.4 H INR 1.2 H ABG pH ABG pO2 ABG HCO3 ABG O2 Saturation Chloride Carbon Dioxide BUN Glucose POC Glucose (mg/dL) 347 H Osmolality Plasma Lactic Acid Sukhi Ionized Calcium Robert Total Protein Albumin Urine Protein Urine Glucose (UA) Urine Ketones Amorphous Sediment Urine Bacteria Hyaline Casts Urine Mucus 11/06/20 11/06/20 11/06/20 09:33 09:33 09:33 RBC Hgb Hct Lymphocytes # PT INR ABG pH ABG pO2 ABG HCO3 ABG O2 Saturation Chloride 111 H Carbon Dioxide 19 L BUN 35 H Glucose 297 H POC Glucose (mg/dL) Osmolality 316 H Plasma Lactic Acid Sukhi 3.7 H* Ionized Calcium Robert 6.1 H* Total Protein 6.0 L Albumin 3.1 L Urine Protein 2+ H Urine Glucose (UA) 4+ H Urine Ketones 1+ H Amorphous Sediment Occasional H Urine Bacteria Occasional H Hyaline Casts 3 H Urine Mucus Rare H 11/06/20 09:42 RBC Hgb Hct Lymphocytes # PT INR ABG pH 7.30 L ABG pO2 >400 H ABG HCO3 18 L ABG O2 Saturation 100.0 H Chloride Carbon Dioxide BUN Glucose POC Glucose (mg/dL) Osmolality Plasma Lactic Acid Sukhi Ionized Calcium Robert Total Protein Albumin Urine Protein Urine Glucose (UA) Urine Ketones Amorphous Sediment Urine Bacteria Hyaline Casts Urine Mucus - Diagnostic Findings Chest x-ray: image reviewed Assessment and Plan Assessment: 1 Altered mental status of unclear etiology in a patient found on the ground in the hallway exposed to outdoor temperature 2 Acute hypothermia with initial core temperature 81.3. Currently 89.6. Received 2 L of warm saline. Fabian hugger in place 3 Acute hypoxic respiratory failure secondary to above requiring intubation mechanical ventilatory support 4 Focal low attenuation present within the thalamus on the left which is asymmetric possible thalamus infarct 5 History of dementia 6 Hyperlipidemia 7 Hypertension 8 Lactic acidosis 9 Hyperglycemia Plan: The patient was seen and evaluated by Dr. Villalobos Chest x-ray, ABGs and labs reviewed Continue with external warming therapy Gradually increase her temperature Titrate down the FiO2 as tolerated Propofol for sedation, ABGs pending We will continue to follow and make further recommendations based on her clinical status I, the cosigning physician, performed a history & physical examination of the patient. Lungs sounds are clear. Maintaining good O2 saturations in the 90s on 50% FiO2 via the mechanical ventilator. I discussed the assessment and plan of care with my nurse practitioner, Adina Sinclair. I attest to the above consultation as dictated by her. Time with Patient: Greater than 30
[2020-11-06] MEDS: SODIUM CHLORIDE 0.9% 1,000 ML IV SCH (13:37)
[2020-11-06] MEDS: INSULIN ASPART (NovoLOG) 100 UNIT/ML VIAL SQ SCH ×2 (13:41→18:13)
[2020-11-06] MEDS: PANTOPRAZOLE 40 MG/10 ML VIAL IV SCH (13:44)
[2020-11-06] MEDS ORDERED: VANCOMYCIN 750 MG in SODIUM CHLORIDE 0.9% 250 ML IVPB SCH (14:15)
[2020-11-06] MEDS ORDERED: SODIUM CHLORIDE 0.9% 1,000 ML IV ONE (15:13)
--- NOTE | 2020-11-06 15:20 | P.CNNES ---
History of Present Illness Consult date: 11/06/20 Requesting physician: Alex Joiner Reason for Consult: suspect stroke per CT head finding (subacute thalamic infarct) History of Present Illness: 6 is an 89-year-old woman medical history of hypertension, hyperlipidemia presented to the emergency department on the 11/06/2020 via EMS because of altered mental status and hypothermia. History is obtained from medical records since unable to obtain from the patient. She was brought in the morning via EMS since she was found in the hallway of her apartment building. It seems that the hallway was somewhat exposed to the outside temperature. Last normal was last n ight at 10pm. EMS attempted to get the glucose checked on her about the unsuccessful after 2 attempts. Per EMS her GCS was 9. In our facility her POC glucose was in the 300s was hypothermic. The patient was intubated in the ED and was started on IV propofol drip. Per the patient ICU nurse she stated that the patient the on 920 mics per Per minute drip she was moving all extremities but was restless so he had to go up on the propofol drip but her blood pressure systolic was in the 90s so she went back down at on the propofol to 20 mcg/kg/min. According to the nurse she nodded that she was in pain when she had the patient initially. Upon seeing the patient she was opening. Of note there is seems to be some family dynamics where i is noted in the ED note that EMS found the patient to be belligerent. Initial vital signs on presentation is blood pressure 157/101, heart rate of 62, respiratory of 16, temperature of 83.8 Fahrenheit rectal and the pulse ox of 99% room air. After that the patient was mechanically ventilated and the patient is saturating at 100% Since the patient has been in the hospital her temperature has been in the range of 81.[address] of the of the head in the ED and it's reported as findings may represent subacute Aaron infarct, correlate. No acute intracranial hemorrhage, mass effect or midline shift is seen. Dense basilar artery is ind eterminant, brain MRI, belkofski of Vann MRA may be of benefit. I personally reviewed the CT of the head and I felt there was some subacute hypointensity over the left thalamus which was small in size. Also also possibly the tip of the basilar artery was hyperintense. CT of the cervical spine is reported as there is no acute fracture or dislocation evident in the cervical spine at. In the bodies mentioned there is multilevel facet arthropathy. There is multilevel spondylosis with loss of disc height is present consistent with degenerative disc disease, there is multilevel foraminal encroachment. EKG is reported as marked sinus bradycardia with marked sinus arrhythmia. Prolonged QT. Abnormal EKG. Initial POC glucose is 347. The Plasma-Lyte vein is 3.7 The ionized calcium is 6.1 while the serum glucose is 9.3. TSH is 2.03. Urine drug screen the routine urine drugs and is negative. Salicylate level is less than 1, acetaminophen is less than 10 and the serum alcohol was less than 1 0. The ABG showed a pH was 7.3, pO2 is more than 400 bicarb is 18 the CO2 is 19 Review of Systems Review of system is limited as the patient condition but the prone positive and negative as per HPI. Past Medical History Past Medical History: No Reported History, Dementia, Hyperlipidemia, Hypertension History of Any Multi-Drug Resistant Organisms: None Reported Past Surgical History: No Surgical Hx Reported Past Psychological History: No Psychological Hx Reported Smoking Status: Unknown if ever smoked Past Alcohol Use History: None Reported Past Drug Use History: None Reported Medications and Allergies Home Medications Medication Instructions Recorded Confirmed Type Aspirin [Children's Aspirin] 81 mg PO DAILY 11/06/20 11/06/20 History DULoxetine HCL [Cymbalta] 30 mg PO DAILY 11/06/20 11/06/20 History Donepezil [Aricept] 10 mg PO DAILY 11/06/20 11/06/20 History Losartan Potassium [Cozaar] 100 mg PO DAILY 11/06/20 11/06/20 History Memantine [Namenda] 10 mg PO BID 11/06/20 11/06/20 History Simvastatin [Zocor] 40 mg PO HS 11/06/20 11/06/20 History amLODIPine [Norvasc] 2.5 mg PO DAILY 11/06/20 11/06/20 History busPIRone HCl [Buspar] 10 mg PO TID 11/06/20 11/06/20 History Allergies Allergy/AdvReac Type Severity Reaction Status Date / Time No Allergy Information Allergy Vomiting Verified 11/06/20 10:07 Available Physical Examination - Vital Signs Vital Signs: Vital Signs Temp Pulse Resp BP Pulse Ox 11/06/20 13:30 93.0 F L 50 L 16 171/77 100 11/06/20 13:00 90.0 F L 53 L 24 191/108 100 11/06/20 12:20 89.6 F L 42 L 14 170/75 100 11/06/20 12:00 89.6 F L 42 L 14 170/75 100 11/06/20 11:55 88.5 F L 42 L 14 166/81 100 11/06/20 11:42 86.9 F L 48 L 14 156/89 100 11/06/20 11:40 88.2 F L 48 L 14 166/81 100 11/06/20 11:25 86 F L 51 L 14 180/86 100 11/06/20 11:10 84.9 F L 51 L 14 100 11/06/20 10:55 82.6 F L 42 L 14 183/86 100 11/06/20 10:40 80.8 F L 39 L 14 181/83 100 11/06/20 10:25 82.4 F L 42 L 14 179/81 100 11/06/20 10:10 82.0 F L 32 L 14 172/84 100 11/06/20 10:00 81.3 F L 36 L 14 187/86 100 11/06/20 09:55 81.1 F L 32 L 14 164/77 100 11/06/20 09:52 14 11/06/20 09:40 80.8 F L 39 L 14 172/82 100 11/06/20 09:30 14 11/06/20 09:25 82.0 F L 37 L 14 188/82 11/06/20 09:10 81.7 F L 35 L 14 168/83 100 11/06/20 08:55 81.3 F L 37 L 14 164/78 100 11/06/20 08:45 83.8 F L 62 16 157/101 99 Intake and Output 11/05/20 11/06/20 11/06/20 22:59 06:59 14:59 Intake Total 305.114 Output Total 920 Balance -614.886 Intake: IV 290 Sodium Chloride 0.9% 1, 40 000 ml @ 20 mls/hr IV . Q24H [facility] Rx#:[id number] Vancomycin 750 mg In 250 Sodium Chloride 0.9% 250 ml @ 125 mls/hr IVPB ONCE ONE Rx#:[id number] Intake, IV Titration 15.114 Amount propofoL 1,000 mg In 6.246 Empty Bag 1 bag @ Titrate IV .Q0M ONE Rx#: [id number] propofoL 1,000 mg In 8.868 Empty Bag 1 bag @ Titrate IV .Q0M [facility] Rx#: [id number] Output: Urine 920 Uretheral (Bae) 800 Other: Weight 56.3 kg GENERAL: The patient is lying in bed, intubated, on sedation (Propofol drip 20mcg/kg/min) and is not in acute distress. CHEST: The heart rate is regular rate rhythm. No murmurs to auscultation. No carotid bruit bilaterally. LUNG: Clear to auscultation bilaterally no wheezing noted throughout. Not labored breathing. Intubated and on ventilator. ABDOMEN/GI: Bowel sounds present in all 4 quadrants. No tenderness to palpation throughout. NEUROLOGICAL: Limited because since patient is intubate and on sedation (IV propofol drip). Higher mental function: GCS 9 (E3, VT1, M5). The patient is drowy but opens eys to painful stimuli. Does not follow commands or attempt to communicate. . Cranial nerves: The primary gaze is midline bilaterally.. The pupils are round, equal, 3mm bilaterally and reactive to light. Visual plunkett could not be assessed because of patient's condition. Extraocular could not be assessed. No facial weakness. Rest of cranial nerves could not be assessed because of patient's condition. Motor: Gait is deferred. Patient is withdrawing all extremities to painful except hard to assess right upper extremity since is wearing a brace (per nurse was moving all extremities). The Normal tone and bulk except unable to assess right upper extremity.. Cerebellum: Unable to assess. Sensation: Could not assess light touch but intact to painful stimuli. Reflexes (right/left): 2+ throughout except ankles are 1-2+ bilaterally. Right upper extremity could not be assessed. Plantars are downgoing bilaterally. Results AST of 26 and ALT of 18. Her ammonia is less than 9. Coagulation study: PT of 12.4, INR is 1.2 and PTT is 22.3. Penaloza virus PCR is nondetected. Urine analysis seems negative for urinary tract infection. - Laboratory Findings CBC and BMP: 11/06/20 09:33 11/06/20 09:33 Abnormal Lab Findings: Abnormal Labs 11/06/20 11/06/20 11/06/20 08:50 09:33 09:33 RBC 3.24 L Hgb 10.0 L Hct 30.5 L Lymphocytes # 4.9 H PT 12.4 H INR 1.2 H ABG pH ABG pO2 ABG HCO3 ABG O2 Saturation Chloride Carbon Dioxide BUN Glucose POC Glucose (mg/dL) 347 H Osmolality Plasma Lactic Acid Sukhi Ionized Calcium Robert Total Protein Albumin Urine Protein Urine Glucose (UA) Urine Ketones Amorphous Sediment Urine Bacteria Hyaline Casts Urine Mucus 11/06/20 11/06/20 11/06/20 09:33 09:33 09:33 RBC Hgb Hct Lymphocytes # PT INR ABG pH ABG pO2 ABG HCO3 ABG O2 Saturation Chloride 111 H Carbon Dioxide 19 L BUN 35 H Glucose 297 H POC Glucose (mg/dL) Osmolality 316 H Plasma Lactic Acid Sukhi 3.7 H* Ionized Calcium Robert 6.1 H* Total Protein 6.0 L Albumin 3.1 L Urine Protein 2+ H Urine Glucose (UA) 4+ H Urine Ketones 1+ H Amorphous Sediment Occasional H Urine Bacteria Occasional H Hyaline Casts 3 H Urine Mucus Rare H 11/06/20 11/06/20 11/06/20 09:42 12:56 13:10 RBC Hgb Hct Lymphocytes # PT INR ABG pH 7.30 L ABG pO2 >400 H ABG HCO3 18 L ABG O2 Saturation 100.0 H Chloride Carbon Dioxide BUN Glucose POC Glucose (mg/dL) 209 H Osmolality Plasma Lactic Acid Sukhi 2.5 H* Ionized Calcium Robert Total Protein Albumin Urine Protein Urine Glucose (UA) Urine Ketones Amorphous Sediment Urine Bacteria Hyaline Casts Urine Mucus Assessment and Plan Assessment: Encephalopathy unknown etiology (was found on ground in hallway exposed to outdoor temperature) 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 Cannot get MRI of the brain at this time because of the patient condition e specially that she is intubated. Once the patient is more stable and she is extubated will proceed with the MRI of the brain once patient is stabe. Patient was given aspirin 600 mg rectally stat in the ED. I will start the patient on the aspirin 81mg and Plavix 75mg daily. As well I will start patient on Lipitor on 80mg daily. I ordered lipid panel. Physical therapy and occupation therapy is consulted by the ED team Q1 hour neuro checks. Continue cardiac monitoring. Recommend getting 2-D echo. I ordered EEG for altered mental status. Will not start antiepileptic drug unless there is epileptiform discharges or seizure on EEG. I ordered vitamin B12 and folate. Patient TSH is 2.03 which is normal. Defer the rest of the medical management to the primary team and ICU team. Thank you for the consultation The plan was discussed with the patient's nurse. Andreas Coello MD Neuro-Hospitalist. Time with Patient: Greater than 30
[2020-11-06] MEDS: IPRATROPIUM-ALBUTEROL 3 ML NEB INHALATION SCH ×3 (16:02→23:12)
--- NOTE | 2020-11-06 16:53 | CT ---
EXAMINATION TYPE: CT angio head neck DATE OF EXAM: 11/06/2020 HISTORY: Abnormal head CT, altered mental status COMPARISON: CT brain same date CT DLP: 399.2 mGycm. Automated Exposure Control for Dose Reduction was Utilized. TECHNIQUE: CTA scan of the neck is performed with IV Contrast, patient injected with 65 mL of Isovue 370, axial images are obtained, coronal and sagittal reformatted images are reviewed. Three-D recons tructed images are created on an independent workstation and reviewed. FINDINGS: Carotid/Vascular Structures: Transverse aorta shows atheromatous change. There are 3 super aortic bra nch vessels, the innominate, left and right common carotid, left and right subclavian arteries are pa tent. Left and right vertebral arteries are patent. Difficult to exclude subclavian artery stenosis o n the right, there is apparent asymmetric enhancement of the subclavian arteries, axillary arteries, there is contrast coursing in the right upper extremity which limits evaluation at this level. Atheromatous changes are present at the carotid bifurcations, there is no stenosis by NASCET criteria of the proximal internal carotid arteries. There is a kink in the proximal internal carotid artery o n the right noted on the reconstruction images Anterior posterior circulation is patent, there is no evident aneurysm, dissection, or embolus. The a ppearance of the prominent basilar artery on previous exam is confirmed and is likely congenital rath er than aneurysmal, there is an atrophic A1 segment on the right. Cerebral vascular calcifications ar e present and noted incidentally Other: Endotracheal tube remains in close proximity to the babar as noted on chest x-ray same date. Orogastric tube is in place. Enlarged thyroid likely due to multinodular goiter. IMPRESSION: Cerebral vascular disease. 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 Additi onal findings above, endotracheal tube as described
[2020-11-06] MEDS: CLOPIDOGREL 75 MG TAB PO SCH (18:01)
[2020-11-06] MEDS: PIPERACILLIN-TAZOBACTAM 3.375 GM in SODIUM CHLORIDE 0.9% 100 ML IVPB SCH (18:01)
[2020-11-06] MEDS: HEPARIN SODIUM,PORCINE 5,000 UNIT/ML 1 ML VIAL SQ SCH (18:01)
[2020-11-06 18:14] LABS: Glucose,Whole Blood 101 mg/dL (75-99)
--- NOTE | 2020-11-06 20:07 | EEG ---
ELECTROENCEPHALOGRAM REPORT DATE OF SERVICE: 11/06/2020 CLINICAL HISTORY: This is an 89-year-old woman who presented to the emergency department on 11/06/2020 for altered mental status and hypothermia. The video EEG is obtained to evaluate for seizure and epileptiform activity. RELEVANT MEDICATION: The patient is on propofol IV drip. EEG TYPE: This is a routine 21-channel EEG was performed with video using the 10/20 electrode placement system. DESCRIPTION: The patient is intubated on the ventilator and on IV propofol drip. Awake, drowsy and stage II sleep is obtained. There is no posterior-dominant rhythm seen over bilateral hemispheres. The background consists of low to moderate voltage of 0.5 to 1 hertz that is diffuse and non-rhythmic. During stage II sleep, there are sleep spindles and K- complexes. There is frequent excessive fast activity seen over bilateral hemispheres. INTERICTAL AND ICTAL: None. ACTIVATION PROCEDURES: Photic stimulation is performed but did not evoke a posterior driving response. Hyperventilation is not performed. CLINICAL INTERPRETATION: This is an abnormal routine EEG. The background slowing is suggestive of severe encephalopathy. There are no focal slowing, epileptiform discharges or seizure on the EEG. The excessive fast activity is likely due to medication effect. Clinical correlation is recommended. MMODL / IJN: [id number] / MTDD
[2020-11-06] MEDS: CHLORHEXIDINE GLUCONATE 15 ML CUP MUCOUS MEM SCH (22:04)
[2020-11-06] MEDS: ATORVASTATIN 80 MG TAB PO SCH (22:04)
[2020-11-07 00:04] LABS: Glucose,Whole Blood 107 mg/dL (75-99)
[2020-11-07] MEDS: INSULIN ASPART (NovoLOG) 100 UNIT/ML VIAL SQ SCH ×3 (00:37→11:49)
[2020-11-07] MEDS: HEPARIN SODIUM,PORCINE 5,000 UNIT/ML 1 ML VIAL SQ SCH ×3 (00:43→16:51)
[2020-11-07] MEDS: PIPERACILLIN-TAZOBACTAM 3.375 GM in SODIUM CHLORIDE 0.9% 100 ML IVPB SCH ×4 (00:43→23:27)
[2020-11-07] MEDS: IPRATROPIUM-ALBUTEROL 3 ML NEB INHALATION SCH ×5 (03:19→19:21)
[2020-11-07 04:45] LABS: Basophils % (A) 0 %; Eosinophils # (A) 0.1 k/uL (0-0.7); Eosinophils % (A) 1 %; HCT 37.7 % (34.0-46.0); HGB 12.1 gm/dL (11.4-16.0); Lymphocytes # (A) 1.9 k/uL (1.0-4.8); Lymphocytes % (A) 18 %; MCH 30.3 pg (25.0-35.0); MCV 94.7 fL (80.0-100.0); Mean Platelet Volume 8.6; Monocytes # (A) 0.8 k/uL (0-1.0); Monocytes % (A) 8 %; Neutrophils # (A) 7.3 k/uL (1.3-7.7); Neutrophils % (A) 71 %; Platelet Count 214 k/uL (150-450); RBC 3.98 m/uL (3.80-5.40); RDW 13.8 % (11.5-15.5); WBC 10.3 k/uL (3.8-10.6)
[2020-11-07 04:57] LABS: ABG Base Excess -4.6 mmol/L; ABG HCO3 21 mmol/L (21-25); ABG Oxygen Saturation 98.8 % (94-97); ABG PCO2 40 mmHg (35-45); ABG PH 7.33 (7.35-7.45); ABG PO2 125 mmHg (83-108); ABG TCO2 23 mmol/L (19-24); Allen Test Performed? Yes
[2020-11-07 06:44] LABS: Calcium 10.3 mg/dL (8.4-10.2); Potassium 4.4 mmol/L (3.5-5.1)
[2020-11-07 07:07] LABS: Glucose,Whole Blood 103 mg/dL (75-99)
--- NOTE | 2020-11-07 07:41 | XR ---
EXAMINATION TYPE: XR chest 1V portable DATE OF EXAM: 11/07/2020 COMPARISON: 11/06/2020 INDICATION: Tube placement TECHNIQUE: Single frontal view of the chest is obtained. FINDINGS: The heart size is normal. The pulmonary vasculature is normal. Some mild atelectasis may be at the right base. There is some prominence of the right main pulmonary artery. Endotracheal tube tip is above the babar. Nasogastric tube transverses the thorax with the tip in le ft upper quadrant of the abdomen. IMPRESSION: 1. Mild right basilar atelectasis. 2. Lines and catheters discussed above
[2020-11-07] MEDS ORDERED: POTASSIUM BICARBONATE/CIT AC 20 MEQ TABLET.EFF NG-TUBE SCH (08:00)
--- NOTE | 2020-11-07 08:03 | P.PN ---
Subjective Progress Note Date: 11/07/20 This is a 89-year-old frail, cachectic, 38 kg female patient with a history of mention, hypertension, hyperlipidemia. She was brought in earlier this morning via EMS after she was being had been found in the hallway of her apartment building. The hallway was somewhat exposed to the outside temperature. They were unable to obtain point of care glucose testing. They found her temperature to be quite low as well. She was quite unresponsive they decided to bring her right to the emergency room. They left the scene urgently as the son was being belligerent. No further information was able to be obtained. Upon arrival they found her blood glucose to be in the 300s. Her initial rectal temperature was 27.2C. Consistent with severe hypothermia. Active external rewarming measures were performed. She received 2 L of warm saline IV. Fabian hugger was placed. CT services were contacted and did not recommend performing any invasive warming procedures at this time. Due to the patient's obtundation she was intubated and placed on a mechanical ventilator. Computed tomography scan of the brain revealed no acute fracture or dislocation evident in the cervical spine. There may be a subacute thalamic infarct. No acute intracranial hemorrhage, mass effect or midline shift. Chest x-ray revealed low lung volumes and chronic parenchymal changes but no acute suspicious pulmonary process. Satisfactory position of the OG tube. Endotracheal tube repositioned. EKG revealed significant bradycardia and prolonged QT with corrected measuring 590 ms. White count 9.4. Hemoglobin 10.0. INR 1.2. Sodium 145. Potassium 2.9. Creatinine 0.71. Glucose 297. Lactic acid 3.7. Ionized calcium measured 6.1. TSH 2.03. Albumin 3.1. Troponin 0.018. C-reactive protein less than 5. CK level 84. Urinalysis 1+ ketones. Urine drug screen negative. Alcohol level less than 10. Coronavirus not detected. Current ventilator settings are assist control at a rate of 16, tidal volume 400, FiO2 100% and a PEEP of 5. Gases revealed a pH is 7.30, pCO2 36, pO2 greater than 400. FiO2 has been titrated down to 50%. She has received Zosyn, vancomycin. Her current core temperature is 89.6. Evaluation of 11/07/2020, the patient is being seen in follow-up. As mentioned earlier, the patient came in with altered mental status and significant hypotension with a temperature of 88F. She received external warming and some warm IV fluids and the patient gradually improved. The patient's temperature currently is up to 36.8C and this is equivalent to 98.2F.. She is doing well. She is hemodynamically stable and she is not requiring any pressors. No cardiac arrhythmias. She is in a normal sinus rhythm and she is in mild sinus bradycardia with a heart rate of 57. She remains on a mechanical ventilator on assist control mode at the rate of 16 with tidal volume of 350 and FiO2 of 50% with a PEEP of 5. She is riding the ventilator at the rate of 16. The blood gases from today showed a pH of 7.33 with a pCO2 of 40 and pO2 of 125. The chest x-ray from today shows adequate positioning of the orotracheal and orogastric tube. No evidence of any acute abnormalities. However in comparison to yesterday's chest x-ray, the patient is a development of a new right lower lobe pulmonary infiltration. She is not producing secretions from her orotracheal tube. She does have some disease or secretions pH is currently on propofol running at 13 5 mcg/kg per minute and the patient is easily arousable and she moves around was taken off sedation or once stimulated. CPKs nonelevated. The blood work shows no significant abnormalities. White cell count of 10.3 with a hemoglobin of 12.1. The rest of the electrolytes show a serum bicarb of 18, BUN is at 30 with a creatinine of 0.7. Her electrolytes are normal. She is receiving IV fluids at the rate of 20 mL an hour of normal sali ne. She got bolused multiple times yesterday and she received a total of 2 L of IV fluid bolus. Currently on IV Zosyn. Objective - Vital Signs Vital signs: Vital Signs Temp 98.2 F 11/07/20 04:00 Pulse 56 L 11/07/20 07:26 Resp 16 11/07/20 07:00 BP 109/54 11/07/20 07:00 Pulse Ox 100 11/07/20 07:00 Intake & Output 11/06/20 11/07/20 11/07/20 18:59 06:59 18:59 Intake Total 1507.621 485.705 20 Output Total 1120 405 25 Balance 387.621 80.705 -5 Weight 56.3 kg 55.5 kg Intake: IV 1450 340 20 Piperacillin-Tazobactam 3 100 100 .375 gm In Sodium Chloride 0.9% 100 ml @ 25 mls/hr IVPB Q8HR [facility] Rx# :[id number] Sodium Chloride 0.9% 1, 1100 240 20 000 ml @ 20 mls/hr IV . Q24H [facility] Rx#:[id number] Vancomycin 750 mg In 250 Sodium Chloride 0.9% 250 ml @ 125 mls/hr IVPB ONCE ONE Rx#:[id number] Intake, IV Titration 57.621 145.705 Amount propofoL 1,000 mg In 6.246 Empty Bag 1 bag @ Titrate IV .Q0M [facility] Rx#: [id number] propofoL 1,000 mg In 51.375 145.705 Empty Bag 1 bag @ Titrate IV .Q0M [facility] Rx#: [id number] Output: Urine 1120 405 25 Uretheral (Bae) 800 Other: Voiding Method Indwelling Catheter Indwelling Catheter - Exam GENERAL EXAM: Intubated, sedated, frail 89-year-old female patient, comfortable in no apparent distress. HEAD: Normocephalic. EYES: Sluggish reaction of pupils, equal size. NOSE: Clear with pink turbinates. THROAT: Oral endotracheal and gastric tube secured in place. No erythema or exudates. NECK: No masses, no JVD. CHEST: No chest wall deformity. LUNGS: Equal air entry with no crackles, wheeze, rhonchi or dullness. CVS: S1 and S2 normal with no audible murmur, regular rhythm. ABDOMEN: No hepatosplenomegaly, normal bowel sounds, no guarding or rigidity. SPINE: No scoliosis or deformity SKIN: No rashes CENTRAL NERVOUS SYSTEM: Sedated, tone is normal in all 4 extremities. EXTREMITIES: There is no peripheral edema. No clubbing, no cyanosis. Peripheral pulses are intact. - Labs CBC & Chem 7: 11/07/20 04:36 11/07/20 04:36 Labs: Abnormal Lab Results - Last 24 Hours (Table) 11/06/20 11/06/20 11/06/20 Range/Units 08:50 09:33 09:33 RBC 3.24 L (3.80-5.40) m/uL Hgb 10.0 L (11.4-16.0) gm/dL Hct 30.5 L (34.0-46.0) % Lymphocytes # 4.9 H (1.0-4.8) k/uL PT 12.4 H (9.0-12.0) sec INR 1.2 H (<1.2) ABG pH (7.35-7.45) ABG pO2 (83-108) mmHg ABG HCO3 (21-25) mmol/L ABG O2 Saturation (94-97) % Chloride (98-107) mmol/L Carbon Dioxide (22-30) mmol/L BUN (7-17) mg/dL Glucose (74-99) mg/dL POC Glucose (mg/dL) 347 H (75-99) mg/dL Osmolality (280-301) mosm/kg Plasma Lactic Acid Sukhi (0.7-2.0) mmol/L Calcium (8.4-10.2) mg/dL Ionized Calcium Robert (4.5-5.3) mg/dL Total Protein (6.3-8.2) g/dL Albumin (3.5-5.0) g/dL LDL Cholesterol, Calc (0-99) mg/dL Urine Protein (Negative) Urine Glucose (UA) (Negative) Urine Ketones (Negative) Amorphous Sediment (None) /hpf Urine Bacteria (None) /hpf Hyaline Casts (0-2) /lpf Urine Mucus (None) /hpf 11/06/20 11/06/20 11/06/20 Range/Units 09:33 09:33 09:33 RBC (3.80-5.40) m/uL Hgb (11.4-16.0) gm/dL Hct (34.0-46.0) % Lymphocytes # (1.0-4.8) k/uL PT (9.0-12.0) sec INR (<1.2) ABG pH (7.35-7.45) ABG pO2 (83-108) mmHg ABG HCO3 (21-25) mmol/L ABG O2 Saturation (94-97) % Chloride 111 H (98-107) mmol/L Carbon Dioxide 19 L (22-30) mmol/L BUN 35 H (7-17) mg/dL Glucose 297 H (74-99) mg/dL POC Glucose (mg/dL) (75-99) mg/dL Osmolality 316 H (280-301) mosm/kg Plasma Lactic Acid Sukhi 3.7 H* (0.7-2.0) mmol/L Calcium (8.4-10.2) mg/dL Ionized Calcium Robert 6.1 H* (4.5-5.3) mg/dL Total Protein 6.0 L (6.3-8.2) g/dL Albumin 3.1 L (3.5-5.0) g/dL LDL Cholesterol, Calc (0-99) mg/dL Urine Protein 2+ H (Negative) Urine Glucose (UA) 4+ H (Negative) Urine Ketones 1+ H (Negative) Amorphous Sediment Occasional H (None) /hpf Urine Bacteria Occasional H (None) /hpf Hyaline Casts 3 H (0-2) /lpf Urine Mucus Rare H (None) /hpf 11/06/20 11/06/20 11/06/20 Range/Units 09:42 12:56 13:10 RBC (3.80-5.40) m/uL Hgb (11.4-16.0) gm/dL Hct (34.0-46.0) % Lymphocytes # (1.0-4.8) k/uL PT (9.0-12.0) sec INR (<1.2) ABG pH 7.30 L (7.35-7.45) ABG pO2 >400 H (83-108) mmHg ABG HCO3 18 L (21-25) mmol/L ABG O2 Saturation 100.0 H (94-97) % Chloride (98-107) mmol/L Carbon Dioxide (22-30) mmol/L BUN (7-17) mg/dL Glucose (74-99) mg/dL POC Glucose (mg/dL) 209 H (75-99) mg/dL Osmolality (280-301) mosm/kg Plasma Lactic Acid Sukhi 2.5 H* (0.7-2.0) mmol/L Calcium (8.4-10.2) mg/dL Ionized Calcium Robert (4.5-5.3) mg/dL Total Protein (6.3-8.2) g/dL Albumin (3.5-5.0) g/dL LDL Cholesterol, Calc (0-99) mg/dL Urine Protein (Negative) Urine Glucose (UA) (Negative) Urine Ketones (Negative) Amorphous Sediment (None) /hpf Urine Bacteria (None) /hpf Hyaline Casts (0-2) /lpf Urine Mucus (None) /hpf 11/06/20 11/07/20 11/07/20 Range/Units 18:13 00:03 04:36 RBC (3.80-5.40) m/uL Hgb (11.4-16.0) gm/dL Hct (34.0-46.0) % Lymphocytes # (1.0-4.8) k/uL PT (9.0-12.0) sec INR (<1.2) ABG pH (7.35-7.45) ABG pO2 (83-108) mmHg ABG HCO3 (21-25) mmol/L ABG O2 Saturation (94-97) % Chloride 115 H (98-107) mmol/L Carbon Dioxide 18 L (22-30) mmol/L BUN 30 H (7-17) mg/dL Glucose 103 H (74-99) mg/dL POC Glucose (mg/dL) 101 H 107 H (75-99) mg/dL Osmolality (280-301) mosm/kg Plasma Lactic Acid Sukhi (0.7-2.0) mmol/L Calcium 10.3 H (8.4-10.2) mg/dL Ionized Calcium Robert (4.5-5.3) mg/dL Total Protein (6.3-8.2) g/dL Albumin (3.5-5.0) g/dL LDL Cholesterol, Calc 101 H (0-99) mg/dL Urine Protein (Negative) Urine Glucose (UA) (Negative) Urine Ketones (Negative) Amorphous Sediment (None) /hpf Urine Bacteria (None) /hpf Hyaline Casts (0-2) /lpf Urine Mucus (None) /hpf 11/07/20 11/07/20 Range/Units 04:55 07:05 RBC (3.80-5.40) m/uL Hgb (11.4-16.0) gm/dL Hct (34.0-46.0) % Lymphocytes # (1.0-4.8) k/uL PT (9.0-12.0) sec INR (<1.2) ABG pH 7.33 L (7.35-7.45) ABG pO2 125 H (83-108) mmHg ABG HCO3 (21-25) mmol/L ABG O2 Saturation 98.8 H (94-97) % Chloride (98-107) mmol/L Carbon Dioxide (22-30) mmol/L BUN (7-17) mg/dL Glucose (74-99) mg/dL POC Glucose (mg/dL) 103 H (75-99) mg/dL Osmolality (280-301) mosm/kg Plasma Lactic Acid Sukhi (0.7-2.0) mmol/L Calcium (8.4-10.2) mg/dL Ionized Calcium Robert (4.5-5.3) mg/dL Total Protein (6.3-8.2) g/dL Albumin (3.5-5.0) g/dL LDL Cholesterol, Calc (0-99) mg/dL Urine Protein (Negative) Urine Glucose (UA) (Negative) Urine Ketones (Negative) Amorphous Sediment (None) /hpf Urine Bacteria (None) /hpf Hyaline Casts (0-2) /lpf Urine Mucus (None) /hpf Microbiology - Last 24 Hours (Table) 11/06/20 16:40 Urine Culture - Preliminary Urine,Catheterized Assessment and Plan Plan: 1 Altered mental status of unclear etiology in a patient found on the ground in the hallway exposed to outdoor temperature the patient received a gradual rewarming and the temperature is up to normal. She was seen by neurology and a diagnosis for now his encephalopathy most likely metabolic in nature including her underlying hypothermia. Based on the neurology evaluation, a subacute stroke involving the left thalamus cannot be completely ruled out EEG was done and is consistent with encephalopathy. No evidence of any acute seizure activity. 2 Acute hypothermia with initial core temperature 81.3. Currently 98.2 3 Acute hypoxic respiratory failure secondary to above requiring intubation mechanical ventilatory support him a rule out the possibility of a right lower lobe pulmonary infiltrates/pneumonia of an aspiration type and the patient is currently on IV Zosyn 4 Focal low attenuation present within the thalamus on the left which is asymmetric possible thalamus infarct 5 History of dementia 6 Hyperlipidemia 7 Hypertension 8 Lactic acidosis, lactic acid level improved 9 Hyperglycemia, controlled for now Plan: Gradually increase her temperature was achieved Continue IV Zosyn Sedation holiday and assess the patient's mental status and weaning parameters Hold propofol for now Chest x-ray was noted in the blood gases was noted and there is a concern for right lower lobe pneumonia Exhibition today depending on her ability to recover from sedation and her weaning parameters. We'll continue to follow. Neurologist on the case. There is a concern for a left thalamic infarct, subacute and neurologic examination will be done once the patient is fully extubated. Possible extubation today Continued care evaluation, more than 30 minutes. Time with Patient: Greater than 30
[2020-11-07] MEDS: CHLORHEXIDINE GLUCONATE 15 ML CUP MUCOUS MEM SCH ×2 (08:24→20:03)
[2020-11-07] MEDS: ASPIRIN 81 MG PO SCH (08:24)
[2020-11-07] MEDS: PANTOPRAZOLE 40 MG/10 ML VIAL IV SCH (08:24)
[2020-11-07] MEDS: CLEVIDIPINE BUTYRATE 25 MG in EMPTY BAG 1 BAG IV SCH ×2 (11:17→16:52)
[2020-11-07 11:43] LABS: Glucose,Whole Blood 130 mg/dL (75-99)
--- NOTE | 2020-11-07 15:10 | P.PN ---
Subjective Progress Note Date: 10/29/20 The patient was extubated and that station was stopped earlier today. Per the patient nurse the patient the was told by her son that she has severe dementia and is only oriented to herself. She is restless at home as well as the she's been in the hospital somewhat restless. Patient's skin that she wants to leave. Per the patient nurse she's moving all extremities and there is no focality erythema. On presentation it was 81.3 and currently 98.3 Objective - Vital Signs Vital signs: Vital Signs Temp 99.0 F 11/07/20 12:00 Pulse 69 11/07/20 12:00 Resp 21 11/07/20 12:00 BP 198/95 11/07/20 12:00 Pulse Ox 99 11/07/20 12:00 Intake & Output 11/06/20 11/07/20 11/07/20 18:59 06:59 18:59 Intake Total 1507.621 485.705 182.100 Output Total 1120 405 205 Balance 387.621 80.705 -22.900 Weight 56.3 kg 55.5 kg Intake: IV 1450 340 180 Piperacillin-Tazobactam 3 100 .375 gm In Sodium Chloride 0.9% 100 ml @ 200 mls/hr IVPB [facility]CE [facility] Rx#:[id number] Piperacillin-Tazobactam 3 100 100 .375 gm In Sodium Chloride 0.9% 100 ml @ 25 mls/hr IVPB Q8HR [facility] Rx# :[id number] Sodium Chloride 0.9% 1, 1100 240 80 000 ml @ 20 mls/hr IV . Q24H [facility] Rx#:[id number] Vancomycin 750 mg In 250 Sodium Chloride 0.9% 250 ml @ 125 mls/hr IVPB ONCE ONE Rx#:[id number] Intake, IV Titration 57.621 145.705 2.100 Amount Clevidipine Butyrate 25 2.100 mg In Empty Bag 1 bag @ 1 MG/HR 2 mls/hr IV .Q24H [facility] Rx#:[id number] propofoL 1,000 mg In 6.246 Empty Bag 1 bag @ Titrate IV .Q0M [facility] Rx#: [id number] propofoL 1,000 mg In 51.375 145.705 Empty Bag 1 bag @ Titrate IV .Q0M [facility] Rx#: [id number] Output: Urine 1120 405 205 Uretheral (Bae) 800 Other: Voiding Method Indwelling Catheter Indwelling Catheter Indwelling Catheter - Exam GENERAL: The patient is lying in bed and somewhat restless. NEUROLOGICAL: Limited because of cooperation. Higher mental function: The patient is awake alert oriented to self. Did not respond upon asking her regarding the place or time. It seems that the patient's the orientation is baseline per the patient's nurse who the son related that the information. Patient is able to name objects such as pen and watch correctly. She is able to follow some a few commands such as showing a thumbs up. The language was very hard to assess because of the patient cooperation but does not seem that she has a aphasia. Cranial nerves: The primary gaze is midline bilaterally. The pupils are round, equal, 3-4mm bilaterally and reactive to light. Visual plunkett could not be assessed because of patient's cooperation. Extraocular could not be assessed. No facial weakness. No dysarthria. The rest of the cranial could not be assessed because the patient cooperation. Motor: Gait is deferred. Patient is moving all extremities above gravity without drift. I cannot assess individual muscle strength because of the patient's lack of cooperation but upon the patient tried to get out of bed seems that the patient had good strength throughout. Cerebellum: Unable to assess. Sensation: Could not assess light touch. Reflexes (right/left): 2+ throughout except ankles are 1-2+ bilaterally. Right upper extremity could not be assessed. Plantars are downgoing bilaterally. - Labs CBC & Chem 7: 11/07/20 04:36 11/07/20 04:36 Labs: Abnormal Lab Results - Last 24 Hours (Table) 11/06/20 11/06/20 11/07/20 Range/Units 13:10 18:13 00:03 ABG pH (7.35-7.45) ABG pO2 (83-108) mmHg ABG O2 Saturation (94-97) % Chloride (98-107) mmol/L Carbon Dioxide (22-30) mmol/L BUN (7-17) mg/dL Glucose (74-99) mg/dL POC Glucose (mg/dL) 101 H 107 H (75-99) mg/dL Plasma Lactic Acid Sukhi 2.5 H* (0.7-2.0) mmol/L Calcium (8.4-10.2) mg/dL LDL Cholesterol, Calc (0-99) mg/dL 11/07/20 11/07/20 11/07/20 Range/Units 04:36 04:55 07:05 ABG pH 7.33 L (7.35-7.45) ABG pO2 125 H (83-108) mmHg ABG O2 Saturation 98.8 H (94-97) % Chloride 115 H (98-107) mmol/L Carbon Dioxide 18 L (22-30) mmol/L BUN 30 H (7-17) mg/dL Glucose 103 H (74-99) mg/dL POC Glucose (mg/dL) 103 H (75-99) mg/dL Plasma Lactic Acid Sukhi (0.7-2.0) mmol/L Calcium 10.3 H (8.4-10.2) mg/dL LDL Cholesterol, Calc 101 H (0-99) mg/dL 11/07/20 Range/Units 11:42 ABG pH (7.35-7.45) ABG pO2 (83-108) mmHg ABG O2 Saturation (94-97) % Chloride (98-107) mmol/L Carbon Dioxide (22-30) mmol/L BUN (7-17) mg/dL Glucose (74-99) mg/dL POC Glucose (mg/dL) 130 H (75-99) mg/dL Plasma Lactic Acid Sukhi (0.7-2.0) mmol/L Calcium (8.4-10.2) mg/dL LDL Cholesterol, Calc (0-99) mg/dL Microbiology - Last 24 Hours (Table) 11/06/20 09:59 Blood Culture - Preliminary Blood No Growth after 24 hours 11/06/20 16:40 Urine Culture - Preliminary Urine,Catheterized Assessment and Plan Assessment: Encephalopathy unknown etiology, possibly as a result of the hypothermia the patient became encephalopathic (was found on ground in hallway exposed to outdoor temperature)---improved 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 Arthritis changes are present at the carotid bifurcation, there is no stenosis spine Center criteria of the proximal internal carotid arteries. He'll be a little bit difficult to get provided. Brain because of the patient's lack of cooperation and she seems restless and was notified this is her baseline. I will think that MRI the brain ischemic change and management. EEG on 10/26/20192020: Shows an abnormal routine EEG at. The back was told is suggestive of severe encephalopathy. There are no focal slowing, upper prone discharges or seizure on the EEG. Excessive fast activity is likely due to medication effect. Patient was given aspirin 600 mg rectally stat in the ED. I will start the patient on the aspirin 81mg and Plavix 75mg daily. As well I will start patient on Lipitor on 80mg daily. Lipid panel: triglrceride 121, cholestrol 182, LDL 101, HDL 57. Physical therapy and occupation therapy is consulted. Continue neuro checks. Continue cardiac monitoring. 2-D echo: Is ordered and is pending. I ordered vitamin B12 and folate is pending. Patient TSH is 2.03 which is normal. I was notified that the adult service has been consulted. There seems to be some family dynamics at home. Defer the rest of the medical management to the primary team and ICU team. The plan was discussed with the patient's nurse. Andreas Coello MD Neuro-Hospitalist. Time with Patient: Greater than 30
[2020-11-07] MEDS: SODIUM CHLORIDE 0.9% 1,000 ML IV SCH (16:53)
[2020-11-07] MEDS: CLOPIDOGREL 75 MG TAB PO SCH (16:53)
[2020-11-07] MEDS: HALOPERIDOL LACTATE 5 MG/ML 1 ML VIAL IM PRN (18:00)
--- NOTE | 2020-11-07 18:06 | HP ---
HISTORY AND PHYSICAL DATE OF SERVICE: 11/06/2020 CHIEF COMPLAINT: Hypothermia. HISTORY OF PRESENT ILLNESS: This is an 89-year-old demented -[place] female who apparently wandered out of her house and could not get back in, as the door was locked. She was found lying down and brought to the emergency room comatose with a body temperature of 80 degrees Fahrenheit. REVIEW OF SYSTEMS: Unobtainable. Past medical history, family history, and personal and social histories reveal that she is on: 1. BuSpar 10 mg t.i.d. p.r.n. 2. Donepezil 10 mg once a day. 3. Losartan 100 mg once a day. 4. Duloxetine 30 mg once a day. 5. Namenda 10 mg twice a day. 6. Amlodipine 2.5 mg once a day. 7. Simvastatin 40 mg once a day. She apparently lives with a son who has seemed to be a responsible and caring caregiver. She used to smoke. There is no other history available. PHYSICAL EXAMINATION: Blood pressure is 98/50 with a pulse of 55, respirations of 15, and her temperature was 80 degrees. In general she appeared to be well developed and extremely lethargic. Head, ears, eyes and nose appeared to be normal. Chest demonstrated breath sounds on both sides. Cardiac exam sounded like normal sinus rhythm with no murmurs. Abdomen is soft and no masses. Extremities are normal. IMPRESSION: 1. Hypothermia. 2. Dementia. 3. History of hypertension. PLAN: 1. Intensive care unit management. 2. Restore body temperature. 3. Consult Intensive Medicine. MMODL / IJN: [id number] /
--- NOTE | 2020-11-07 18:56 | PN ---
PROGRESS NOTE DATE OF SERVICE: 11/07/2020 CHIEF COMPLAINT: Hypothermia and dementia. HISTORY OF PRESENT ILLNESS: This lady is doing well. She is starting to wake up. She was on the ventilator overnight. REVIEW OF SYSTEMS: Unobtainable. PHYSICAL EXAMINATION: Blood pressure is 198/94, and she is agitated. She is in sinus rhythm. Chest is clear. Cardiac exam is normal. The abdomen is soft, without masses. Extremities are normal. She is making urine. IMPRESSION: 1. Hypothermia. 2. Dementia. 3. Hypertension. PLAN: Her activity will be increased according to her capabilities medically and mentally. MMODL / IJN: [id number] /
[2020-11-07] MEDS ORDERED: IPRATROPIUM-ALBUTEROL 3 ML NEB INHALATION PRN (20:13)
[2020-11-07] MEDS: ATORVASTATIN 80 MG TAB PO SCH (20:16)
[2020-11-08] MEDS: HEPARIN SODIUM,PORCINE 5,000 UNIT/ML 1 ML VIAL SQ SCH ×3 (01:16→15:49)
[2020-11-08] MEDS: CLEVIDIPINE BUTYRATE 25 MG in EMPTY BAG 1 BAG IV SCH ×5 (01:21→22:23)
[2020-11-08 05:52] LABS: Basophils % (A) 0 %; Eosinophils # (A) 0.1 k/uL (0-0.7); Eosinophils % (A) 1 %; HCT 36.7 % (34.0-46.0); HGB 12.7 gm/dL (11.4-16.0); Lymphocytes # (A) 1.4 k/uL (1.0-4.8); Lymphocytes % (A) 17 %; MCH 31.1 pg (25.0-35.0); MCHC 34.5 g/dL (31.0-37.0); Mean Platelet Volume 8.9; Monocytes # (A) 0.6 k/uL (0-1.0); Monocytes % (A) 7 %; Neutrophils # (A) 6.5 k/uL (1.3-7.7); Neutrophils % (A) 75 %; Platelet Count 169 k/uL (150-450); RBC 4.08 m/uL (3.80-5.40); RDW 13.5 % (11.5-15.5); WBC 8.7 k/uL (3.8-10.6)
[2020-11-08 06:07] LABS: African American GFR (CKD) >90 (>60 ml/min/1.73 sqM); Anion Gap 9 mmol/L; Blood Urea Nitrogen 17 mg/dL (7-17); Carbon Dioxide 18 mmol/L (22-30); Chloride 114 mmol/L (98-107); Glucose 140 mg/dL (74-99); Non-African American GFR(CKD) 79 (>60 ml/min/1.73 sqM); Potassium 4.2 mmol/L (3.5-5.1); Sodium 141 mmol/L (137-145)
--- NOTE | 2020-11-08 07:15 | XR ---
EXAMINATION TYPE: XR chest 1V portable DATE OF EXAM: 11/08/2020 COMPARISON: 11/07/2020 HISTORY: Shortness of breath TECHNIQUE: Single frontal view of the chest is obtained. FINDINGS: Diffuse hyperinflation. Atherosclerotic change aorta. Heart size stable. Improving basilar infiltrates. Correlate for COPD. ET and NG tube have been removed. IMPRESSION: 1. Improving right basilar infiltrate. 2. COPD.
[2020-11-08] MEDS: IPRATROPIUM-ALBUTEROL 3 ML NEB INHALATION SCH ×4 (07:17→19:59)
--- NOTE | 2020-11-08 07:34 | ECHOF ---
Referral Reason:stroke MEASUREMENTS -------- HEIGHT: 147.3 cm WEIGHT: 55.3 kg BP: 198/95 RVIDd: 3.0 cm (< 3.3) IVSd: 0.9 cm (0.6 - 1.1) LVIDd: 4.8 cm (3.9 - 5.3) LVPWd: 0.9 cm (0.6 - 1.1) IVSs: 1.7 cm LVIDs: 2.8 cm LVPWs: 1.5 cm LA Diam: 3.2 cm (2.7 - 3.8) Ao Diam: 3.2 cm (2.0 - 3.7) AV Cusp: 2.1 cm (1.5 - 2.6) MV EXCURSION: 13.536 mm (> 18.000) MV EF SLOPE: 67 mm/s (70 - 150) EPSS: 0.6 cm RAP: 5.00 mmHg RVSP: 32.30 mmHg FINDINGS -------- Sinus rhythm. Resting tachycardia (HR>100bpm). This was a technically adequate study. The left ventricular size is normal. Left ventricular wall thickness is normal. Overall left vent ricular systolic function is normal with, an EF between 55 - 60 %. The right ventricle is normal in size. The left atrial size is normal. The right atrial size is normal. There is mild aortic valve sclerosis. Mild mitral annular calcification present. Qxos-cq-sqsgxqzy mitral regurgitation is present. The tricuspid valve appears structurally normal. Mild tricuspid regurgitation present. Right vent ricular systolic pressure is normal at < 35 mmHg. There is no pulmonic regurgitation present. The aortic root size is normal. There is no pericardial effusion. CONCLUSIONS -------- 1. Left ventricular wall thickness is normal. 2. Overall left ventricular systolic function is normal with, an EF between 55 - 60 %. 3. There is mild aortic valve sclerosis. 4. Mild mitral annular calcification present. 5. Uosa-dx-xraoncvq mitral regurgitation is present. 6. Mild tricuspid regurgitation present. 7. There is no pericardial effusion. FITTING ROOM OPERATOR: Haritha Carrera [facility]
[2020-11-08] MEDS: SODIUM CHLORIDE 0.9% 1,000 ML IV SCH (09:48)
[2020-11-08] MEDS: PANTOPRAZOLE 40 MG/10 ML VIAL IV SCH (09:48)
[2020-11-08] MEDS: HALOPERIDOL LACTATE 5 MG/ML 1 ML VIAL IM PRN (09:49)
[2020-11-08] MEDS: LOSARTAN 50 MG TAB PO SCH (09:49)
[2020-11-08] MEDS: PIPERACILLIN-TAZOBACTAM 3.375 GM in SODIUM CHLORIDE 0.9% 100 ML IVPB SCH ×2 (09:50→15:48)
[2020-11-08] MEDS: ASPIRIN 81 MG PO SCH (09:51)
[2020-11-08] MEDS: amLODIPine 2.5 MG TAB PO SCH (10:00)
--- NOTE | 2020-11-08 12:44 | P.PN ---
Subjective Progress Note Date: 11/08/20 This is a 89-year-old frail, cachectic, 38 kg female patient with a history of mention, hypertension, hyperlipidemia. She was brought in earlier this morning via EMS after she was being had been found in the hallway of her apartment building. The hallway was somewhat exposed to the outside temperature. They were unable to obtain point of care glucose testing. They found her temperature to be quite low as well. She was quite unresponsive they decided to bring her right to the emergency room. They left the scene urgently as the son was being belligerent. No further information was able to be obtained. Upon arrival they found her blood glucose to be in the 300s. Her initial rectal temperature was 27.2C. Consistent with severe hypothermia. Active external rewarming measures were performed. She received 2 L of warm saline IV. Fabian hugger was placed. CT services were contacted and did not recommend performing any invasive warming procedures at this time. Due to the patient's obtundation she was intubated and placed on a mechanical ventilator. Computed tomography scan of the brain revealed no acute fracture or dislocation evident in the cervical spine. There may be a subacute thalamic infarct. No acute intracranial hemorrhage, mass effect or midline shift. Chest x-ray revealed low lung volumes and chronic parenchymal changes but no acute suspicious pulmonary process. Satisfactory position of the OG tube. Endotracheal tube repositioned. EKG revealed significant bradycardia and prolonged QT with corrected measuring 590 ms. White count 9.4. Hemoglobin 10.0. INR 1.2. Sodium 145. Potassium 2.9. Creatinine 0.71. Glucose 297. Lactic acid 3.7. Ionized calcium measured 6.1. TSH 2.03. Albumin 3.1. Troponin 0.018. C-reactive protein less than 5. CK level 84. Urinalysis 1+ ketones. Urine drug screen negative. Alcohol level less than 10. Coronavirus not detected. Current ventilator settings are assist control at a rate of 16, tidal volume 400, FiO2 100% and a PEEP of 5. Gases revealed a pH is 7.30, pCO2 36, pO2 greater than 400. FiO2 has been titrated down to 50%. She has received Zosyn, vancomycin. Her current core temperature is 89.6. Evaluation of 11/07/2020, the patient is being seen in follow-up. As mentioned earlier, the patient came in with altered mental status and significant hypotension with a temperature of 88F. She received external warming and some warm IV fluids and the patient gradually improved. The patient's temperature currently is up to 36.8C and this is equivalent to 98.2F.. She is doing well. She is hemodynamically stable and she is not requiring any pressors. No cardiac arrhythmias. She is in a normal sinus rhythm and she is in mild sinus bradycardia with a heart rate of 57. She remains on a mechanical ventilator on assist control mode at the rate of 16 with tidal volume of 350 and FiO2 of 50% with a PEEP of 5. She is riding the ventilator at the rate of 16. The blood gases from today showed a pH of 7.33 with a pCO2 of 40 and pO2 of 125. The chest x-ray from today shows adequate positioning of the orotracheal and orogastric tube. No evidence of any acute abnormalities. However in comparison to yesterday's chest x-ray, the patient is a development of a new right lower lobe pulmonary infiltration. She is not producing secretions from her orotracheal tube. She does have some disease or secretions pH is currently on propofol running at 13 5 mcg/kg per minute and the patient is easily arousable and she moves around was taken off sedation or once stimulated. CPKs nonelevated. The blood work shows no significant abnormalities. White cell count of 10.3 with a hemoglobin of 12.1. The rest of the electrolytes show a serum bicarb of 18, BUN is at 30 with a creatinine of 0.7. Her electrolytes are normal. She is receiving IV fluids at the rate of 20 mL an hour of normal sali ne. She got bolused multiple times yesterday and she received a total of 2 L of IV fluid bolus. Currently on IV Zosyn. On 11/08/2020, the patient is extubated. She is normothermic. She is awake and alert. She has advanced dementia and this has been confirmed by her primary care physician. Overnight, she was a bit restless and agitated. She is a sitter at the bedside. She is able to communicate. She is able to say her name. She is moving all 4 extremities without any limitation. Based on all this, I started the patient back on her Namenda and Aricept. Note that she'll be started also on Seroquel as the patient was slightly delirious and agitated yesterday. Meanwhile, the patient is still on clevidipine drip running at 1 mg per hour for blood pressure control. Her antihypertensive medication have not been resumed. His swallow evaluation is to be done. The patient was seen by neurology. EEG was done and was consistent with encephalopathy. No evidence of any seizure activity. There was questionable thalamic stroke and the CAT scan of the head and follow-up neurology evaluation is still pending for now as the patient is currently extubated. She is hemodynamically stable. No cardiac arrhythmias have been noted. She is on IV fluids with normal saline at the rate of 20 mL an hour. She is on IV Protonix 40 mg every 24 hours. She is on IV Lasix for a potential aspiration pneumonia. Chest x-ray shows improvement in aeration and infiltration the right lung base. Objective - Vital Signs Vital signs: Vital Signs Temp 98.1 F 11/08/20 12:00 Pulse 71 11/08/20 12:00 Resp 16 11/08/20 12:00 BP 145/61 11/08/20 12:00 Pulse Ox 97 11/08/20 12:00 Intake & Output 11/07/20 11/08/20 11/08/20 18:59 06:59 18:59 Intake Total 404.573 449.333 215.267 Output Total 600 1835 275 Balance -195.427 -1385.667 -59.733 Weight 51.2 kg Intake: IV 300 340 180 Piperacillin-Tazobactam 3 100 .375 gm In Sodium Chloride 0.9% 100 ml @ 200 mls/hr IVPB ONCE STA Rx#:[id number] Piperacillin-Tazobactam 3 100 100 .375 gm In Sodium Chloride 0.9% 100 ml @ 25 mls/hr IVPB Q8HR BRUNIL[facility] Rx# :[id number] Sodium Chloride 0.9% 1, 200 240 80 000 ml @ 20 mls/hr IV . Q24H BRUNILDA Rx#:[id number] Intake, IV Titration 104.573 109.333 35.267 Amount Clevidipine Butyrate 25 51.234 109.333 35.267 mg In Empty Bag 1 bag @ 1 MG/HR 2 mls/hr IV .Q24H BRUNIL[facility] Rx#:[id number] propofoL 1,000 mg In 53.339 Empty Bag 1 bag @ Titrate IV .Q0M BRUNILDA Rx#: [id number] Output: Urine 600 7555 275 Other: Voiding Method Indwelling Catheter Indwelling Catheter - Exam GENERAL EXAM: Extubated to a nasal cannula 2 L sedated, frail 89-year-old female patient, comfortable in no apparent distress. Note that the patient can be easily transitioned to room air oxygen. HEAD: Normocephalic. EYES: Sluggish reaction of pupils, equal size. NOSE: Clear with pink turbinates. THROAT: Oral endotracheal and gastric tube secured in place. No erythema or exudates. NECK: No masses, no JVD. CHEST: No chest wall deformity. LUNGS: Equal air entry with no crackles, wheeze, rhonchi or dullness. CVS: S1 and S2 normal with no audible murmur, regular rhythm. ABDOMEN: No hepatosplenomegaly, normal bowel sounds, no guarding or rigidity. SPINE: No scoliosis or deformity SKIN: No rashes CENTRAL NERVOUS SYSTEM: Awake and alert, at times confused, no agitation, tone is normal in all 4 extremities. The patient is moving all 4 extremities without any limitation. EXTREMITIES: There is no peripheral edema. No clubbing, no cyanosis. Peripheral pulses are intact. - Labs CBC & Chem 7: 11/08/20 04:24 11/08/20 04:24 Labs: Abnormal Lab Results - Last 24 Hours (Table) 11/08/20 Range/Units 04:24 Chloride 114 H (98-107) mmol/L Carbon Dioxide 18 L (22-30) mmol/L Glucose 140 H (74-99) mg/dL Microbiology - Last 24 Hours (Table) 11/06/20 09:59 Blood Culture - Preliminary Blood No Growth after 48 hours 11/06/20 16:40 Urine Culture - Final Urine,Catheterized Assessment and Plan Plan: 1 Altered mental status of unclear etiology in a patient found on the ground in the hallway exposed to outdoor temperature the patient received a gradual r ewarming and the temperature is up to normal. She was seen by neurology and a diagnosis for now his encephalopathy most likely metabolic in nature including her underlying hypothermia. Based on the neurology evaluation, a subacute stroke involving the left thalamus cannot be completely ruled out EEG was done and is consistent with encephalopathy. No evidence of any acute seizure activity. The patient is extubated. The patient has underlying dementia and possibly some mild component of delirium. She is moving all 4 extremities and there is no clinical indication of any acute CVA. Follow-up neurology evaluation will be needed. There is a sitter at the bedside at this point in time. The patient will be started back on her dementia medications. 2 Acute hypothermia with initial core temperature 81.3, recovered 3 Acute hypoxic respiratory failure secondary to above requiring intubation mechanical ventilatory support him a rule out the possibility of a right lower lobe pulmonary infiltrates/pneumonia of an aspiration type and the patient is currently on IV Zosyn, recovered and the patient is extubated and there is further improvement in the right lower lobe pulmonary infiltration 4 Focal low attenuation present within the thalamus on the left which is asymmetric possible thalamus infarct 5 History of dementia 6 Hyperlipidemia 7 Hypertension, currently on a clevidipine drip for blood pressure control 8 Lactic acidosis, lactic acid level improved 9 Hyperglycemia, controlled for now Plan: The patient is going to restart back on Aricept and Namenda. The patient was also started on Seroquel 25 mg at bedtime. We'll start Norvasc 2.5 mg by mouth daily for blood pressure control and losartan 100 mg by mouth daily. We'll going to do a swallow evaluation to make sure the patient is able to swallow without any risk for aspiration. Continue IV Zosyn. The patient is showing improvement in the right lower lobe pulmonary filtration. The patient can be transitioned to a room air oxygen and currently she is on 2 L about 2 by nasal cannula. IV fluids are at KVO. Continue aspirin. Continue Plavix. Neurology to follow-up regarding the possibility of a CVA. We'll continue to follow.
[2020-11-08] MEDS ORDERED: amLODIPine 5 MG TAB PO STA (15:01)
--- NOTE | 2020-11-08 15:39 | P.PN ---
Subjective Progress Note Date: 11/08/20 The patient was seen at bedside and per the patient's nurse she was agitated and restless yesterday and today. There is no seizure-like activity. Patient is moving all extremities without any focality per the patient's nurse. Objective - Vital Signs Vital signs: Vital Signs Temp 98.1 F 11/08/20 12:00 Pulse 65 11/08/20 15:00 Resp 14 11/08/20 15:00 BP 160/82 11/08/20 15:00 Pulse Ox 96 11/08/20 15:00 Intake & Output 11/07/20 11/08/20 11/08/20 18:59 06:59 18:59 Intake Total 404.573 449.333 225.800 Output Total 600 1835 275 Balance -195.427 -1385.667 -49.200 Weight 51.2 kg Intake: IV 300 340 180 Piperacillin-Tazobactam 3 100 .375 gm In Sodium Chloride 0.9% 100 ml @ 200 mls/hr IVPB ONCE STA Rx#:[id number] Piperacillin-Tazobactam 3 100 100 .375 gm In Sodium Chloride 0.9% 100 ml @ 25 mls/hr IVPB Q8HR [facility] Rx# :[id number] Sodium Chloride 0.9% 1, 200 240 80 000 ml @ 20 mls/hr IV . Q24H BR[facility]IL[facility] Rx#:[id number] Intake, IV Titration 104.573 109.333 45.800 Amount Clevidipine Butyrate 25 51.234 109.333 45.800 mg In Empty Bag 1 bag @ 1 MG/HR 2 mls/hr IV .Q24H [facility]IL[facility] Rx#:[id number] propofoL 1,000 mg In 53.339 Empty Bag 1 bag @ Titrate IV .Q0M BRUNILDA Rx#: [id number] Output: Urine 600 1835 275 Other: Voiding Method Indwelling Catheter Indwelling Catheter Indwelling Catheter - Exam GENERAL: The patient is lying in bed and seemed more calm today compared to yesterday. NEUROLOGICAL: Limited because of cooperation. Higher mental function: The patient is awake alert oriented to self. She stated the month was September. She stated she does not where she was. When asked if she was at the hospital she stated yes. Patient is able to name objects such as pen and watch.She is able to follow simple commands. No aphasia or neglect. Cranial nerves: The primary gaze is midline bilaterally. The pupils are round, equal, 3-4mm bilaterally and reactive to light. Visual plunkett are full to confrontation. Extraocular could not be assessed. No facial weakness. No dysarthria. The rest of the cranial could not be assessed because the patient cooperation. Motor: Gait is deferred. Patient is moving all extremities above gravity without drift. I cannot assess individual muscle strength because of the patient's lack of cooperation but upon the patient tried to get out of bed seems that the patient had good strength throughout. Cerebellum: Unable to assess. Sensation: Could not assess light touch because of lack of cooperation.. Reflexes (right/left): 2+ throughout except ankles are 1-2+ bilaterally. Right upper extremity could not be assessed. Plantars are downgoing bilaterally. - Labs CBC & Chem 7: 11/08/20 04:24 11/08/20 04:24 Labs: Abnormal Lab Results - Last 24 Hours (Table) 11/08/20 Range/Units 04:24 Chloride 114 H (98-107) mmol/L Carbon Dioxide 18 L (22-30) mmol/L Glucose 140 H (74-99) mg/dL Microbiology - Last 24 Hours (Table) 11/06/20 09:59 Blood Culture - Preliminary Blood No Growth after 48 hours 11/06/20 16:40 Urine Culture - Final Urine,Catheterized Assessment and Plan Assessment: Encephalopathy unknown exact etiology, possibly as a result of the hypothermia the patient became encephalopathic (was found on ground in hallway exposed to outdoor temperature)---improved subacute stroke over left thalamus (with hypointensity of left thalamus) Acute Hypothermia (possible enviormental) On presentation it was 81.3 and currently 98.1 History of severe dementia (oriented to self according to son who relayed information to nurse) Uncontrolled Hypertension hyperlipidemia Plan: CT angiography of the head and neck: It is reported as cerebral vascular disease. 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 Atheromatous changes are present at the carotid bifurcation, there is no stenosis by NASCET criteria of the proximal internal carotid arteries. Patient of the patient's restless cannot get MRI Brain and it would not climate change risk assessor. EEG on 10/26/20192020: Shows an abnormal routine EEG at. The back was told is suggestive of severe encephalopathy. There are no focal slowing, upper prone discharges or seizure on the EEG. Excessive fast activity is likely due to medication effect. Continue aspirin 81mg(home dose) and Plavix 75mg daily for 21 days then the discontinue aspirin after that and continue Plavix indefinitely. On Lipitor on 80mg daily, so decreased to 40mg daily. Lipid panel: triglrceride 121, cholestrol 182, LDL 101, HDL 57. With LDL goal in stroke <70. Physical therapy and occupation therapy is consulted. Continue neuro checks. Continue cardiac monitoring. 2-D echo: Was reported as overall left ventricle systolic function is normal with ejection fraction 55-60%. There is a mild aortic valve sclerosis. Mild to moderate mitral regurgitation is present. vitamin B12: 914 which is considered normal. RBC folate: 768 which is considered normal.. Patient TSH is 2.03 which is normal. The patient was restarted on her home Aricept 10 mg daily as well as Namenda 10 mg 1 tablet twice a day She was started on the Seroquel 25 mg daily at bedtime because of her agitation and was started on Haldol 2 mg IM every 4 hours as needed for her agitation as well I was notified that the adult protective service has been consulted. There seems to be some family dynamics at home. Defer the rest of the medical management to the primary team and ICU team. The plan was discussed with the patient's nurse. There is no neurology coverage over the weekend. Dr. Blanco will resume neurology coverage on 11/11/2020. Andreas Coello MD Neuro-Hospitalist. Time with Patient: Less than 30
[2020-11-08] MEDS: CLOPIDOGREL 75 MG TAB PO SCH (15:48)
[2020-11-08] MEDS: busPIRone HCl 10 MG TAB PO SCH ×2 (15:49→20:32)
--- NOTE | 2020-11-08 18:28 | PN ---
PROGRESS NOTE CHIEF COMPLAINT: Hypothermia and dementia with delirium. HISTORY OF PRESENT ILLNESS: This lady is becoming a little bit more awake and alert, but she is quite agitated. She is making urine. Vital signs are normal, except that her blood pressure is up at this time. PHYSICAL EXAMINATION: Blood pressure is 157/90. She is agitated. Head, ears, eyes, nose and mouth are normal. Chest is clear. Cardiac exam demonstrates tachycardia. The abdomen is soft. Extremities are normal. IMPRESSION: 1. Hypothermia. 2. Dementia. 3. Delirium. 4. Elevated blood pressure. PLAN: Continue to follow with Intensive Medicine until she is able to be transferred to a step-down unit. MMODL / IJN: [id number] /
[2020-11-08] MEDS: ATORVASTATIN 40 MG TAB PO SCH (20:32)
[2020-11-08] MEDS: QUEtiapine 25 MG TAB PO SCH (20:32)
[2020-11-08] MEDS: MEMANTINE 10 MG TAB PO SCH (20:32)
[2020-11-09] MEDS: HEPARIN SODIUM,PORCINE 5,000 UNIT/ML 1 ML VIAL SQ SCH ×3 (00:53→17:03)
[2020-11-09] MEDS: PIPERACILLIN-TAZOBACTAM 3.375 GM in SODIUM CHLORIDE 0.9% 100 ML IVPB SCH ×3 (00:53→17:04)
[2020-11-09 04:09] LABS: HCT 38.6 % (34.0-46.0); HGB 13.3 gm/dL (11.4-16.0); MCHC 34.5 g/dL (31.0-37.0); MCV 89.7 fL (80.0-100.0); Platelet Count 197 k/uL (150-450); RBC 4.31 m/uL (3.80-5.40); RDW 13.7 % (11.5-15.5); WBC 7.8 k/uL (3.8-10.6)
[2020-11-09] MEDS: CLEVIDIPINE BUTYRATE 25 MG in EMPTY BAG 1 BAG IV SCH (05:27)
[2020-11-09 07:29] LABS: Albumin 3.5 g/dL (3.5-5.0); Calcium 10.3 mg/dL (8.4-10.2); Potassium 3.8 mmol/L (3.5-5.1); Total Bilirubin 1.2 mg/dL (0.2-1.3); Total Protein 6.8 g/dL (6.3-8.2)
[2020-11-09] MEDS: IPRATROPIUM-ALBUTEROL 3 ML NEB INHALATION SCH ×4 (07:33→20:05)
--- NOTE | 2020-11-09 07:58 | P.PN ---
Subjective Progress Note Date: 11/09/20 This is a 89-year-old frail, cachectic, 38 kg female patient with a history of mention, hypertension, hyperlipidemia. She was brought in earlier this morning via EMS after she was being had been found in the hallway of her apartment building. The hallway was somewhat exposed to the outside temperature. They were unable to obtain point of care glucose testing. They found her temperature to be quite low as well. She was quite unresponsive they decided to bring her right to the emergency room. They left the scene urgently as the son was being belligerent. No further information was able to be obtained. Upon arrival they found her blood glucose to be in the 300s. Her initial rectal temperature was 27.2C. Consistent with severe hypothermia. Active external rewarming measures were performed. She received 2 L of warm saline IV. Fabian hugger was placed. CT services were contacted and did not recommend performing any invasive warming procedures at this time. Due to the patient's obtundation she was intubated and placed on a mechanical ventilator. Computed tomography scan of the brain revealed no acute fracture or dislocation evident in the cervical spine. There may be a subacute thalamic infarct. No acute intracranial hemorrhage, mass effect or midline shift. Chest x-ray revealed low lung volumes and chronic parenchymal changes but no acute suspicious pulmonary process. Satisfactory position of the OG tube. Endotracheal tube repositioned. EKG revealed significant bradycardia and prolonged QT with corrected measuring 590 ms. White count 9.4. Hemoglobin 10.0. INR 1.2. Sodium 145. Potassium 2.9. Creatinine 0.71. Glucose 297. Lactic acid 3.7. Ionized calcium measured 6.1. TSH 2.03. Albumin 3.1. Troponin 0.018. C-reactive protein less than 5. CK level 84. Urinalysis 1+ ketones. Urine drug screen negative. Alcohol level less than 10. Coronavirus not detected. Current ventilator settings are assist control at a rate of 16, tidal volume 400, FiO2 100% and a PEEP of 5. Gases revealed a pH is 7.30, pCO2 36, pO2 greater than 400. FiO2 has been titrated down to 50%. She has received Zosyn, vancomycin. Her current core temperature is 89.6. Evaluation of 11/07/2020, the patient is being seen in follow-up. As mentioned earlier, the patient came in with altered mental status and significant hypotension with a temperature of 88F. She received external warming and some warm IV fluids and the patient gradually improved. The patient's temperature currently is up to 36.8C and this is equivalent to 98.2F.. She is doing well. She is hemodynamically stable and she is not requiring any pressors. No cardiac arrhythmias. She is in a normal sinus rhythm and she is in mild sinus bradycardia with a heart rate of 57. She remains on a mechanical ventilator on assist control mode at the rate of 16 with tidal volume of 350 and FiO2 of 50% with a PEEP of 5. She is riding the ventilator at the rate of 16. The blood gases from today showed a pH of 7.33 with a pCO2 of 40 and pO2 of 125. The chest x-ray from today shows adequate positioning of the orotracheal and orogastric tube. No evidence of any acute abnormalities. However in comparison to yesterday's chest x-ray, the patient is a development of a new right lower lobe pulmonary infiltration. She is not producing secretions from her orotracheal tube. She does have some disease or secretions pH is currently on propofol running at 13 5 mcg/kg per minute and the patient is easily arousable and she moves around was taken off sedation or once stimulated. CPKs nonelevated. The blood work shows no significant abnormalities. White cell count of 10.3 with a hemoglobin of 12.1. The rest of the electrolytes show a serum bicarb of 18, BUN is at 30 with a creatinine of 0.7. Her electrolytes are normal. She is receiving IV fluids at the rate of 20 mL an hour of normal sali ne. She got bolused multiple times yesterday and she received a total of 2 L of IV fluid bolus. Currently on IV Zosyn. On 11/08/2020, the patient is extubated. She is normothermic. She is awake and alert. She has advanced dementia and this has been confirmed by her primary care physician. Overnight, she was a bit restless and agitated. She is a sitter at the bedside. She is able to communicate. She is able to say her name. She is moving all 4 extremities without any limitation. Based on all this, I started the patient back on her Namenda and Aricept. Note that she'll be started also on Seroquel as the patient was slightly delirious and agitated yesterday. Meanwhile, the patient is still on clevidipine drip running at 1 mg per hour for blood pressure control. Her antihypertensive medication have not been resumed. His swallow evaluation is to be done. The patient was seen by neurology. EEG was done and was consistent with encephalopathy. No evidence of any seizure activity. There was questionable thalamic stroke and the CAT scan of the head and follow-up neurology evaluation is still pending for now as the patient is currently extubated. She is hemodynamically stable. No cardiac arrhythmias have been noted. She is on IV fluids with normal saline at the rate of 20 mL an hour. She is on IV Protonix 40 mg every 24 hours. She is on IV Lasix for a potential aspiration pneumonia. Chest x-ray shows improvement in aeration and infiltration the right lung base. 11/09/2020, the patient remains intubated. She is oriented to self. She is not oriented to place. Overnight she was slightly agitated. She is doing well for now. She is a sitter at the bedside. She is able to feed herself. No aspirations. She is still on clevidipine drip running at an hour. We have started on her Cozaar under milligrams an Norvasc 2.5 mg. Will hopefully wean off the clevidipine drip today. She is on Namenda, she is on Aricept and she is also on Seroquel 25 mg at bedtime. No cough. No sputum production. No seizure activity. No other significant events overnight. She was noted to be slightly tachycardic and this morning and her heart rate is in 110 range, sinus. She is normothermic for now. Objective - Vital Signs Vital signs: Vital Signs Temp 99.0 F 11/09/20 00:00 Pulse 100 11/09/20 07:45 Resp 17 11/09/20 07:30 BP 140/91 11/09/20 07:30 Pulse Ox 94 L 11/09/20 07:30 Intake & Output 11/08/20 11/09/20 11/09/20 18:59 06:59 18:59 Intake Total 479.300 358.433 20 Output Total 605 835 Balance -125.700 -476.567 20 Weight 51 kg Intake: IV 420 270 20 Piperacillin-Tazobactam 3 200 100 .375 gm In Sodium Chloride 0.9% 100 ml @ 25 mls/hr IVPB Q8HR [facility] Rx# :[id number] Sodium Chloride 0.9% 1, 220 170 20 000 ml @ 20 mls/hr IV . Q24H [facility] Rx#:[id number] Intake, IV Titration 59.300 88.433 Amount Clevidipine Butyrate 25 59.300 88.433 mg In Empty Bag 1 bag @ 1 MG/HR 2 mls/hr IV .Q24H [facility] Rx#:[id number] Output: Urine 605 835 Other: Voiding Method Indwelling Catheter Bedside Commode Bedpan - Exam GENERAL EXAM: room air oxygen, frail 89-year-old female patient, comfortable in no apparent distress. Note that the patient can be easily transitioned to room air oxygen. HEAD: Normocephalic. EYES: Sluggish reaction of pupils, equal size. NOSE: Clear with pink turbinates. THROAT: Oral endotracheal and gastric tube secured in place. No erythema or exudates. NECK: No masses, no JVD. CHEST: No chest wall deformity. LUNGS: Equal air entry with no crackles, wheeze, rhonchi or dullness. CVS: S1 and S2 normal with no audible murmur, regular rhythm. ABDOMEN: No hepatosplenomegaly, normal bowel sounds, no guarding or rigidity. SPINE: No scoliosis or deformity SKIN: No rashes CENTRAL NERVOUS SYSTEM: Awake and alert, at times confused, no agitation, tone is normal in all 4 extremities. The patient is moving all 4 extremities without any limitation. EXTREMITIES: There is no peripheral edema. No clubbing, no cyanosis. Peripheral pulses are intact. - Labs CBC & Chem 7: 11/09/20 03:54 11/09/20 06:46 Labs: Abnormal Lab Results - Last 24 Hours (Table) 11/09/20 Range/Units 06:46 Chloride 113 H (98-107) mmol/L Glucose 161 H (74-99) mg/dL Calcium 10.3 H (8.4-10.2) mg/dL AST 47 H (14-36) U/L Microbiology - Last 24 Hours (Table) 11/06/20 09:59 Blood Culture - Preliminary Blood No Growth after 48 hours Assessment and Plan Plan: 1 Altered mental status of unclear etiology in a patient found on the ground in the hallway exposed to outdoor temperature the patient received a gradual rewarming and the temperature is up to normal. She was seen by neurology and a diagnosis for now his encephalopathy most likely metabolic in nature including her underlying hypothermia. Based on the neurology evaluation, a subacute stroke involving the left thalamus cannot be completely ruled out EEG was done and is consistent with encephalopathy. No evidence of any acute seizure activity. The patient is extubated. The patient has underlying dementia and possibly some mild component of delirium. She is moving all 4 extremities and there is no clinical indication of any acute CVA. Follow-up neurology evaluatio n will be needed. There is a sitter at the bedside at this point in time. The patient will be started back on her dementia medications. The patient is doing well this morning. She is oriented to self. She is not oriented to time or place. No agitation. No focal neurological deficit. Her sleep is not regulated 2 Acute hypothermia with initial core temperature 81.3, recovered, and the patie nt is normothermic for now 3 Acute hypoxic respiratory failure secondary to above requiring intubation mechanical ventilatory support him a rule out the possibility of a right lower lobe pulmonary infiltrates/pneumonia of an aspiration type and the patient is currently on IV Zosyn, recovered and the patient is extubated and there is further improvement in the right lower lobe pulmonary infiltration, the patient was extubated to a room air oxygen and she shows no signs of any respiratory distress at this point in time 4 Focal low attenuation present within the thalamus on the left which is as ymmetric possible thalamus infarct 5 History of dementia 6 Hyperlipidemia 7 Hypertension, currently on a clevidipine drip for blood pressure control, still running at 5 mg an hour 8 Lactic acidosis, lactic acid level improved 9 Hyperglycemia, controlled for now Plan: Aricept and Namenda. Increase the Seroquel to 50 mg at bedtime. We'll start Norvasc 10 mg by mouth daily for blood pressure control and losartan 100 mg by mouth daily. Wean off the clevidipine drip Advance diet as tolerated Switch this patient oral Augmentin and this continued IV Zosyn . IV fluids are at KVO. Continue aspirin. Continue Plavix. Neurology to follow-up regarding the possibility of a CVA. We'll continue to follow. The patient can be transferred to a medical floor once she is off the clevidipine drip
[2020-11-09] MEDS: ASPIRIN 81 MG PO SCH (08:25)
[2020-11-09] MEDS: PANTOPRAZOLE 40 MG/10 ML VIAL IV SCH (08:25)
[2020-11-09] MEDS: LOSARTAN 50 MG TAB PO SCH (08:25)
[2020-11-09] MEDS: MEMANTINE 10 MG TAB PO SCH ×3 (08:26→21:20)
[2020-11-09] MEDS: amLODIPine 2.5 MG TAB PO SCH (08:26)
[2020-11-09] MEDS: DONEPEZIL 10 MG TAB PO SCH (08:26)
[2020-11-09] MEDS: DULoxetine HCL 30 MG CAPSULE.DR PO SCH (08:26)
[2020-11-09] MEDS: busPIRone HCl 10 MG TAB PO SCH ×3 (08:27→21:22)
[2020-11-09] MEDS ORDERED: ASPIRIN 81 MG PO SCH (09:00)
--- NOTE | 2020-11-09 11:46 | XR ---
EXAMINATION TYPE: XR chest 1V portable DATE OF EXAM: 11/09/2020 COMPARISON: 11/08/2020 INDICATION: Tube placement TECHNIQUE: Single frontal view of the chest is obtained. FINDINGS: The heart size is normal. The pulmonary vasculature is normal. The lungs are clear. IMPRESSION: 1. No acute pulmonary process.
[2020-11-09] MEDS ORDERED: amLODIPine 5 MG TAB PO STA (13:54)
[2020-11-09] MEDS ORDERED: hydrALAZINE HCL 20 MG/ML 1 ML VIAL IVP PRN (13:55)
[2020-11-09] MEDS: SODIUM CHLORIDE 0.9% 1,000 ML IV SCH (14:27)
--- NOTE | 2020-11-09 15:09 | PN ---
PROGRESS NOTE DATE OF SERVICE: 11/09/2020. CHIEF COMPLAINT: Hypothermia, cold exposure and dementia. HISTORY OF PRESENT ILLNESS: This lady is doing fairly well. She is still somewhat agitated. She remains confused which is in her usual state. PHYSICAL EXAMINATION: Blood pressure is 156/72 with a fairly regular heart rate, which appears to be atrial fibrillation. Chest is clear. The cardiac exam is otherwise unremarkable. Abdomen is soft, nontender. Extremities normal. IMPRESSION: 1. Hypothermia. 2. Dementia. 3. Delirium. 4. Atrial fibrillation. PLAN: She will probably be moved out to the step-down unit today. MMODL / IJN: [id number] /
[2020-11-09] MEDS: CLOPIDOGREL 75 MG TAB PO SCH (17:04)
[2020-11-09] MEDS: QUEtiapine 25 MG TAB PO SCH (21:19)
[2020-11-09] MEDS: ATORVASTATIN 40 MG TAB PO SCH (21:19)
[2020-11-10] MEDS: HEPARIN SODIUM,PORCINE 5,000 UNIT/ML 1 ML VIAL SQ SCH ×3 (01:47→16:13)
[2020-11-10] MEDS: PIPERACILLIN-TAZOBACTAM 3.375 GM in SODIUM CHLORIDE 0.9% 100 ML IVPB SCH ×2 (01:48→07:48)
[2020-11-10] MEDS: ASPIRIN 81 MG PO SCH (07:47)
[2020-11-10] MEDS: DONEPEZIL 10 MG TAB PO SCH (07:47)
[2020-11-10] MEDS: busPIRone HCl 10 MG TAB PO SCH ×3 (07:47→20:24)
[2020-11-10] MEDS: amLODIPine 10 MG TAB PO SCH (07:47)
[2020-11-10] MEDS: MEMANTINE 10 MG TAB PO SCH ×2 (07:47→20:24)
[2020-11-10] MEDS: LOSARTAN 50 MG TAB PO SCH (07:47)
[2020-11-10] MEDS: DULoxetine HCL 30 MG CAPSULE.DR PO SCH (07:48)
[2020-11-10] MEDS: PANTOPRAZOLE 40 MG/10 ML VIAL IV SCH (07:49)
[2020-11-10] MEDS: IPRATROPIUM-ALBUTEROL 3 ML NEB INHALATION SCH ×4 (08:53→19:02)
--- NOTE | 2020-11-10 10:14 | P.PN ---
Subjective Progress Note Date: 11/10/20 This is a 89-year-old frail, cachectic, 38 kg female patient with a history of mention, hypertension, hyperlipidemia. She was brought in earlier this morning via EMS after she was being had been found in the hallway of her apartment building. The hallway was somewhat exposed to the outside temperature. They were unable to obtain point of care glucose testing. They found her temperature to be quite low as well. She was quite unresponsive they decided to bring her right to the emergency room. They left the scene urgently as the son was being belligerent. No further information was able to be obtained. Upon arrival they found her blood glucose to be in the 300s. Her initial rectal temperature was 27.2C. Consistent with severe hypothermia. Active external rewarming measures were performed. She received 2 L of warm saline IV. Fabian hugger was placed. CT services were contacted and did not recommend performing any invasive warming procedures at this time. Due to the patient's obtundation she was intubated and placed on a mechanical ventilator. Computed tomography scan of the brain revealed no acute fracture or dislocation evident in the cervical spine. There may be a subacute thalamic infarct. No acute intracranial hemorrhage, mass effect or midline shift. Chest x-ray revealed low lung volumes and chronic parenchymal changes but no acute suspicious pulmonary process. Satisfactory position of the OG tube. Endotracheal tube repositioned. EKG revealed significant bradycardia and prolonged QT with corrected measuring 590 ms. White count 9.4. Hemoglobin 10.0. INR 1.2. Sodium 145. Potassium 2.9. Creatinine 0.71. Glucose 297. Lactic acid 3.7. Ionized calcium measured 6.1. TSH 2.03. Albumin 3.1. Troponin 0.018. C-reactive protein less than 5. CK level 84. Urinalysis 1+ ketones. Urine drug screen negative. Alcohol level less than 10. Coronavirus not detected. Current ventilator settings are assist control at a rate of 16, tidal volume 400, FiO2 100% and a PEEP of 5. Gases revealed a pH is 7.30, pCO2 36, pO2 greater than 400. FiO2 has been titrated down to 50%. She has received Zosyn, vancomycin. Her current core temperature is 89.6. Evaluation of 11/07/2020, the patient is being seen in follow-up. As mentioned earlier, the patient came in with altered mental status and significant hypotension with a temperature of 88F. She received external warming and some warm IV fluids and the patient gradually improved. The patient's temperature currently is up to 36.8C and this is equivalent to 98.2F.. She is doing well. She is hemodynamically stable and she is not requiring any pressors. No cardiac arrhythmias. She is in a normal sinus rhythm and she is in mild sinus bradycardia with a heart rate of 57. She remains on a mechanical ventilator on assist control mode at the rate of 16 with tidal volume of 350 and FiO2 of 50% with a PEEP of 5. She is riding the ventilator at the rate of 16. The blood gases from today showed a pH of 7.33 with a pCO2 of 40 and pO2 of 125. The chest x-ray from today shows adequate positioning of the orotracheal and orogastric tube. No evidence of any acute abnormalities. However in comparison to yesterday's chest x-ray, the patient is a development of a new right lower lobe pulmonary infiltration. She is not producing secretions from her orotracheal tube. She does have some disease or secretions pH is currently on propofol running at 13 5 mcg/kg per minute and the patient is easily arousable and she moves around was taken off sedation or once stimulated. CPKs nonelevated. The blood work shows no significant abnormalities. White cell count of 10.3 with a hemoglobin of 12.1. The rest of the electrolytes show a serum bicarb of 18, BUN is at 30 with a creatinine of 0.7. Her electrolytes are normal. She is receiving IV fluids at the rate of 20 mL an hour of normal sali ne. She got bolused multiple times yesterday and she received a total of 2 L of IV fluid bolus. Currently on IV Zosyn. On 11/08/2020, the patient is extubated. She is normothermic. She is awake and alert. She has advanced dementia and this has been confirmed by her primary care physician. Overnight, she was a bit restless and agitated. She is a sitter at the bedside. She is able to communicate. She is able to say her name. She is moving all 4 extremities without any limitation. Based on all this, I started the patient back on her Namenda and Aricept. Note that she'll be started also on Seroquel as the patient was slightly delirious and agitated yesterday. Meanwhile, the patient is still on clevidipine drip running at 1 mg per hour for blood pressure control. Her antihypertensive medication have not been resumed. His swallow evaluation is to be done. The patient was seen by neurology. EEG was done and was consistent with encephalopathy. No evidence of any seizure activity. There was questionable thalamic stroke and the CAT scan of the head and follow-up neurology evaluation is still pending for now as the patient is currently extubated. She is hemodynamically stable. No cardiac arrhythmias have been noted. She is on IV fluids with normal saline at the rate of 20 mL an hour. She is on IV Protonix 40 mg every 24 hours. She is on IV Lasix for a potential aspiration pneumonia. Chest x-ray shows improvement in aeration and infiltration the right lung base. 11/09/2020, the patient remains extubated. She is oriented to self. She is not oriented to place. Overnight she was slightly agitated. She is doing well for now. She is a sitter at the bedside. She is able to feed herself. No aspirations. She is still on clevidipine drip running at an hour. We have started on her Cozaar under milligrams an Norvasc 2.5 mg. Will hopefully wean off the clevidipine drip today. She is on Namenda, she is on Aricept and she is also on Seroquel 25 mg at bedtime. No cough. No sputum production. No seizure activity. No other significant events overnight. She was noted to be slightly tachycardic and this morning and her heart rate is in 110 range, sinus. She is normothermic for now. On 11/10/2020, the patient's is on a medical floor. The patient is resting comfortably in bed. She received 50 mg of Seroquel yesterday and she is also on a combination of Namenda and Aricept. She a room air oxygen. She is normothermic. BP is under much better control. She is on IV Zosyn for potential aspiration pneumonia in her chest x-ray was already showing signs of improvement. She is tolerating her diet. She has a sitter at the bedside. Objective - Vital Signs Vital signs: Vital Signs Temp 98.1 F 11/10/20 08:00 Pulse 65 11/10/20 08:00 Resp 18 11/10/20 08:00 BP 154/72 11/10/20 08:00 Pulse Ox 95 11/10/20 08:00 Intake & Output 11/09/20 11/10/20 11/10/20 18:59 06:59 18:59 Intake Total 1182 180 Output Total 600 1258 Balance 582 -1078 Intake: IV 440 80 Piperacillin-Tazobactam 3 200 .375 gm In Sodium Chloride 0.9% 100 ml @ 25 mls/hr IVPB Q8HR [facility] Rx# :[id number] Sodium Chloride 0.9% 1, 240 80 000 ml @ 20 mls/hr IV . Q24H [facility] Rx#:[id number] Intake, IV Titration 22 100 Amount Clevidipine Butyrate 25 22 mg In Empty Bag 1 bag @ 1 MG/HR 2 mls/hr IV .Q24H [facility] Rx#:[id number] Piperacillin-Tazobactam 3 100 .375 gm In Sodium Chloride 0.9% 100 ml @ 25 mls/hr IVPB Q8HR [facility] Rx# :[id number] Oral 720 0 Output: Urine 600 1000 Post Void Residual 258 Other: Voiding Method Bedside Commode Bedside Commode Bedside Commode # Voids 1 # Bowel Movements 1 - Exam GENERAL EXAM: room air oxygen, frail 89-year-old female patient, comfortable in no apparent distress. Note that the patient can be easily transitioned to room air oxygen. HEAD: Normocephalic. EYES: Sluggish reaction of pupils, equal size. NOSE: Clear with pink turbinates. THROAT: Oral endotracheal and gastric tube secured in place. No erythema or exudates. NECK: No masses, no JVD. CHEST: No chest wall deformity. LUNGS: Equal air entry with no crackles, wheeze, rhonchi or dullness. CVS: S1 and S2 normal with no audible murmur, regular rhythm. ABDOMEN: No hepatosplenomegaly, normal bowel sounds, no guarding or rigidity. SPINE: No scoliosis or deformity SKIN: No rashes CENTRAL NERVOUS SYSTEM: Awake and alert, at times confused, no agitation, tone is normal in all 4 extremities. The patient is moving all 4 extremities without any limitation. EXTREMITIES: There is no peripheral edema. No clubbing, no cyanosis. Peripheral pulses are intact. - Labs CBC & Chem 7: 11/09/20 03:54 11/09/20 06:46 Labs: Microbiology - Last 24 Hours (Table) 11/06/20 09:59 Blood Culture - Preliminary Blood No Growth after 72 hours Assessment and Plan Plan: 1 Altered mental status of unclear etiology in a patient found on the ground in the hallway exposed to outdoor temperature the patient received a gradual rewarming and the temperature is up to normal. She was seen by neurology and a diagnosis for now his encephalopathy most likely metabolic in nature including her underlying hypothermia. Based on the neurology evaluation, a subacute stroke involving the left thalamus cannot be completely ruled out EEG was done and is consistent with encephalopathy. No evidence of any acute seizure activity. The patient is extubated. The patient has underlying dementia and possibly some mild component of delirium. She is moving all 4 extremities and there is no clinical indication of any acute CVA. Given Seroquel regarding some delirium at a dose of 50 mg by mouth daily which helped also with her sleep. She is on Aricept and Namenda regarding chronic dementia. 2 Acute hypothermia with initial core temperature 81.3, recovered, and the patient is normothermic for now 3 Acute hypoxic respiratory failure secondary to above requiring intubation mechanical ventilatory support him a rule out the possibility of a right lower lobe pulmonary infiltrates/pneumonia of an aspiration type and the patient is currently on IV Zosyn, recovered and the patient is extubated and there is further improvement in the right lower lobe pulmonary infiltration, the patient was extubated to a room air oxygen and she shows no signs of any respiratory distress at this point in time 4 Focal low attenuation present within the thalamus on the left which is asymmetric possible thalamus infarct 5 History of dementia 6 Hyperlipidemia 7 Hypertension, currently on a clevidipine drip for blood pressure control, still running at 5 mg an hour 8 Lactic acidosis, lactic acid level improved 9 Hyperglycemia, controlled for now Plan: Aricept and Namenda. Seroquel to 50 mg at bedtime. Norvasc 10 mg by mouth daily for blood pressure control and losartan 100 mg by mouth daily. Advance diet as tolerated Switch this patient oral Augmentin IV fluids are at KVO. Continue aspirin. Continue Plavix. Neurology to follow-up regarding the possibility of a CVA. We'll sign off the case
[2020-11-10] MEDS: SODIUM CHLORIDE 0.9% 1,000 ML IV SCH (11:50)
[2020-11-10] MEDS: CLOPIDOGREL 75 MG TAB PO SCH (16:12)
[2020-11-10] MEDS: ATORVASTATIN 40 MG TAB PO SCH (20:24)
[2020-11-10] MEDS: QUEtiapine 25 MG TAB PO SCH (20:24)
--- NOTE | 2020-11-10 21:30 | PN ---
PROGRESS NOTE CHIEF COMPLAINT: Hypothermia. HISTORY OF PRESENT ILLNESS: This lady is doing quite well. She is awake, alert. Vital signs are normal. She is confused, but this is normal for her. PHYSICAL EXAMINATION: She is wide awake and responsive, but confused. Chest is clear. Cardiac exam is normal. Abdomen is soft, nontender. Extremities are normal. IMPRESSION: 1. Hypothermia. 2. Dementia. PLAN: I will probably work on a discharge plan first of the week. MMODL / CHANGN: [id number] /
[2020-11-11] MEDS: HEPARIN SODIUM,PORCINE 5,000 UNIT/ML 1 ML VIAL SQ SCH ×3 (00:25→16:24)
[2020-11-11] MEDS: IPRATROPIUM-ALBUTEROL 3 ML NEB INHALATION SCH ×3 (07:45→15:32)
[2020-11-11 08:14] VITALS: RESP 16
[2020-11-11] MEDS: ASPIRIN 81 MG PO SCH (08:14)
[2020-11-11] MEDS: busPIRone HCl 10 MG TAB PO SCH ×2 (08:14→16:24)
[2020-11-11] MEDS: LOSARTAN 50 MG TAB PO SCH (08:14)
[2020-11-11] MEDS: amLODIPine 10 MG TAB PO SCH (08:14)
[2020-11-11] MEDS: DONEPEZIL 10 MG TAB PO SCH (08:14)
[2020-11-11] MEDS: MEMANTINE 10 MG TAB PO SCH (08:14)
[2020-11-11] MEDS: PANTOPRAZOLE 40 MG/10 ML VIAL IV SCH (08:15)
[2020-11-11] MEDS: DULoxetine HCL 30 MG CAPSULE.DR PO SCH (08:15)
[2020-11-11] MEDS: CHLORHEXIDINE GLUCONATE 15 ML CUP MUCOUS MEM SCH (08:29)
[2020-11-11] MEDS ORDERED: AMOXIC-POT CLAV 875-125MG 1 EACH TAB PO SCH (09:00)
[2020-11-11] MEDS: SODIUM CHLORIDE 0.9% 1,000 ML IV SCH (14:26)
[2020-11-11 14:29] VITALS: BP 174/67; TEMP 97.6
[2020-11-11 15:44] VITALS: PULSE 72
[2020-11-11] MEDS: CLOPIDOGREL 75 MG TAB PO SCH (16:24)
--- NOTE | 2020-11-11 19:35 | DS ---
DISCHARGE SUMMARY DATE OF SERVICE: 11/11/2020 CHIEF COMPLAINT: Hypothermia. HISTORY OF PRESENT ILLNESS AND PHYSICAL EXAMINATION: Details of this lady's history and physical can be found in the initial workup. LABORATORY STUDIES: While she was in the hospital she had laboratory studies, details of which can be found in the laboratory section of her chart. COURSE IN THE HOSPITAL: After admission she was placed on bedrest, started on intravenous fluids and she was placed in the ICU. Her body temperature was brought back up to normal. She did exceedingly well. She had no problems with rhabdomyolysis, renal failure, etc. Because of her dementia she became delirious occasionally, but her vital signs stabilized and she did well. She was moved out to a regular floor and continued to remain awake and alert. The plan was for her to go back home with her son. She will be discharged on 11/11/2020 and she will go back on her usual activity, diet and her usual medications, and we will follow her up from the office. She will also be followed with home care. FINAL DIAGNOSES: 1. Hypothermia. 2. Dementia. 3. Delirium. OPERATIONS: None. CONSULTATION: Intensive Medicine. She is improved. MMODL / IJN: [id number] /
--- NOTE | 2020-11-13 11:28 | CDI ---
Documentation Clarification Form Date: 11/13/2020 11:26:00 AM From: Kateryna Brown CCS Phone: If you have a question about this query, please contact Vannesa Lang Debubblizer at [phone] between 8am and 5pm Admit Date: 11/06/2020 11:50:00 AM Patient Name: Theodora Mcfarland Visit Number: [id number] Discharge Date: 11/11/2020 05:56:00 PM ATTENTION: The Clinical Documentation Specialists (CDI) and [facility] Coding Staff appreciate your assistance in clarifying documentation. Please respond to the clarification below the line at the bottom and electronically sign. The CDI & [facility] Coding staff will review the response and follow-up if needed. Please note: Queries are made part of the Legal Health Record. If you have any questions, please contact the author of this message via ITS. Dr. 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 3.Dense basilar artery is indeterminate, brain MR, [place] may be of benefit Treatment: Neuro consult, Monitor In your professional opinion, please clarify CVA diagnosis? Cause of Stroke/CVA: Stenosis/Occlusion Embolic Thrombolytic CVA ruled out Hypertension Other (please specify) Unable to Determine MTDD
--- NOTE | 2020-11-13 11:38 | CDI ---
Documentation Clarification Form Date: 11/13/2020 11:37:00 AM From: Kateryna Brown CCS Phone: If you have a question about this query, please contact Vannesa Lang Pediatric Oncology Nurse at [phone] between 8am and 5pm Admit Date: 11/06/2020 11:50:00 AM Patient Name: Theodora Mcfarland Visit Number: [id number] Discharge Date: 11/11/2020 05:56:00 PM ATTENTION: The Clinical Documentation Specialists (CDI) and [facility] Coding Staff appreciate your assistance in clarifying documentation. Please respond to the clarification below the line at the bottom and electronically sign. The CDI & [facility] Coding staff will review the response and follow-up if needed. Please note: Queries are made part of the Legal Health Record. If you have any questions, please contact the author of this message via ITS. Dr. Дмитрий Rubin Conflicting documentation has been found in the medical record: DS and PNs document: The patient has underlying dementia and possibly some mild component of delirium Hypothermia and dementia with delirium 11/06 Consult, PNs document: She was seen by neurology and a diagnosis for now his encephalopathy most likely metabolic in nature including her underlying hypothermia. Based on the neurology evaluation, a subacute stroke involving the left thalamus cannot be completely ruled out EEG was done and is consistent with encephalopathy. History/Risk Factors: Dementia, Hypothermia, Acute Resp Failure, HTN, Possible CVA Clinical Indicators: EEG: This is an abnormal routine EEG.The background slowing is suggestive of severe encephalopathy. Treatment: Narcan 0.2 mg IV, Seroquel 25 mg PO, Haldol 2 mg IM In your opinion, what is the most clinically appropriate diagnosis for this patient? Delirium due to Metabolic encephalopathy due to Other explanation of clinical findings Unable to determine (no explanation for clinical findings) MTDD
--- NOTE | 2020-11-14 23:26 | MISC ---
MISCELLANOUS REPORT The patient did not have a CVA. Other explanation: Dementia. MMODL / IJN: [id number] /
== END 2020-11-11 17:56 | disposition home health service (06) | DRG 922 ==
LOC: EC 08:41 → 2SICU 11:50 → 4SSUR 11-09 23:06
PROVIDERS: ADMIT Family Medicine; ATTEND Family Medicine
PROC: 0BH17EZ Insertion of Endotracheal Airway into Trachea, Via Natural or Artificial Opening (ICD-10-PCS; principal; 2020-11-06)
PROC: 5A1935Z Respiratory Ventilation, Less than 24 Consecutive Hours (ICD-10-PCS; 2020-11-06)
PROC: 0D9670Z Drainage of Stomach with Drainage Device, Via Natural or Artificial Opening (ICD-10-PCS; 2020-11-06)
DX: T68.XXXA Hypothermia, initial encounter (principal); J96.01 Acute respiratory failure with hypoxia; J69.0 Pneumonitis due to inhalation of food and vomit; R64 Cachexia; E87.2 Acidosis; F05 Delirium due to known physiological condition; I95.9 Hypotension, unspecified; F03.90 Unspecified dementia, unspecified severity, without behavioral disturbance, psychotic disturbance, mood disturbance, and anxiety; R54 Age-related physical debility; I48.91 Unspecified atrial fibrillation; Z20.822 Contact with and (suspected) exposure to COVID-19; I10 Essential (primary) hypertension; E78.5 Hyperlipidemia, unspecified; R73.9 Hyperglycemia, unspecified; M47.812 Spondylosis without myelopathy or radiculopathy, cervical region; M50.30 Other cervical disc degeneration, unspecified cervical region; I08.0 Rheumatic disorders of both mitral and aortic valves; X31.XXXA Exposure to excessive natural cold, initial encounter; Z68.23 Body mass index [BMI] 23.0-23.9, adult; Z79.82 Long term (current) use of aspirin; Z79.899 Other long term (current) drug therapy
CPT/HCPCS: 31500; 36415; 36600; 70450; 70496; 70498; 71045; 72125; 80048; 80053; 80061; 80143; 80306; 80320; 81001; 82140; 82330; 82550; 82607; 82747; 82805; 83520; 83605; 83690; 83735; 83930; 84443; 84484; 85025; 85027; 85610; 85730; 86140; 86850; 86900; 86901; 87040; 87086; 87635; 93005; 93306; 94002; 94003; 94640; 95816; 96365; 96366; 96368; 96374; 96375; 99285